=== PATIENT | female | born 1940 | race Caucasian/White ===

== ENCOUNTER 2016-08-02 12:28 | Inpatient (IN) ==
[2016-08-02] MEDS ORDERED: ONDANSETRON 4 MG/2 ML VIAL IV ONE (12:46)
[2016-08-02] MEDS ORDERED: LACTATED RINGERS 1,000 ML IV ONE (12:52)
--- NOTE | 2016-08-02 13:24 | Emergency Department Note ---
Nausea/Vomiting/Diarrhea HPI - General Chief complaint: Nausea/Vomiting/Diarrhea Stated complaint: brown emesis, dehydration Time Seen by Provider: 08/02/16 13:20 Source: patient Mode of arrival: ambulatory Limitations: no limitations - History of Present Illness HPI Narrative: Patient here with persistent nausea that she has had since Thursday. She has spells of hiccups, associated also with spells of vomiting, she's been trying to stay hydrated and was seen here on , at that point, did have a creatinine of 2.2, slight elevated BOM and was sent home with Zofran. Edwards. She is brought in by her daughters secondary to concerns of dehydration, she's not eating very well, did urinate this morning, no history of urinary tract infections. No fevers, denies abdominal pain. Occasionally, she's had some vague discomfort in the lower part of the abdomen. Previous abdominal surgeries include hysterectomy. She is not currently on any medications except low-dose aspirin and vitamins. Denies any chills. Denies any trauma, denies any previous symptoms like this before, no other previous abdominal surgeries. MD complaint: nausea, vomiting - Related Data Home Medications Medication Instructions Recorded Confirmed aspirin 81 mg tablet,delayed 81 mg PO QDAY 11/15/15 08/02/16 release multivitamin tablet 1 tab-cap PO QDAY 11/15/15 08/02/16 Previous Rx's Medication Instructions Recorded Ondansetron HCl [Zofran ODT] 4 mg SL Q4-6HP PRN #14 tablet 07/31/16 Allergies Allergy/AdvReac Type Severity Reaction Status Date / Time clopidogrel [From Plavix] Allergy Severe Right arm Verified 12/17/15 08:03 bleed rofecoxib [From Vioxx] Allergy Intermediate GI Upset Verified 12/17/15 08:03 morphine Allergy Mild Unknown Verified 12/17/15 08:03 Review of Systems All systems ED: reviewed and negative except as stated. Past Medical History - Past Medical History Source: nursing notes reviewed Medical history: Reports: other (Hysterectomy, hyperlipidemia, cerebral atrophy , urinary artery disease) Surgical history ED: Reports: hysterectomy - Social History smoking status: Never smoker Alcohol use: Reports: Rarely Drug use: Reports: none Physical Exam - General Limitations: no limitations General appearance: alert, in no apparent distress - Head Head exam: atraumatic, normocephalic - Eye Eye exam: Present: normal appearance, PERRL, EOMI. Absent: scleral icterus - ENT ENT exam: normal exam, normal oropharynx, mucous membranes moist, TM's normal bilaterally - Neck Neck exam: Present: normal inspection, full ROM, trachea midline. Absent: tenderness - Chest Chest inspection: Present: normal inspection, symmetric chest wall rise - Respiratory Respiratory exam: Present: normal lung sounds bilaterally. Absent: respiratory distress, wheezes - Cardiovascular Cardiovascular exam: Present: regular rate, normal rhythm, normal heart sounds - Abdominal Exam Abdominal exam: Present: soft, diminished bowel sounds. Absent: distention, tenderness, guarding - Rectal Exam Rectal exam: Present: normal inspection, normal rectal tone, heme (-) stool. Absent: mass - Extremities Exam Extremities exam: Present: normal inspection, full ROM. Absent: tenderness, pedal edema - Back Exam Back exam: Present: normal inspection, full ROM. Absent: tenderness, CVA tenderness (R), CVA tenderness (L), muscle spasm - Neurological Exam Neurological exam: Present: alert, oriented X3, CN II-XII intact. Absent: motor sensory deficit - Psychiatric Psychiatric exam: Present: normal affect, normal mood - Skin Skin exam: Present: warm, dry, intact. Absent: rash, cyanosis Course - Reevaluation(s) Reevaluation #1: CT scan of the abdomen and pelvis showing high-grade obstruction. Down in the pelvis, no obvious tumors, no obvious hydronephrosis. Consult with general surgery, as well as consult with internal medicine, they will take over and manage care from here. She was hydrated in the department, given Zofran and felt a little bit better, never required any pain medications.inal diagnosis is bowel obstruction along with renal failure, acute Vital Signs Temperature 95.6 F L 08/02/16 12:31 Pulse Rate 102 H 08/02/16 12:31 Respiratory Rate 16 08/02/16 12:31 Blood Pressure 96/31 08/02/16 12:31 Pulse Oximetry (%) 93 08/02/16 12:31 Temperature 97.0 F L 08/02/16 12:45 Pulse Rate 94 H 08/02/16 14:42 Respiratory Rate 22 08/02/16 14:42 Blood Pressure 112/74 08/02/16 14:42 Pulse Oximetry (%) 92 08/02/16 14:42 Nausea/Vomiting/Diarrhea - [facility] Narrative Medical decision making narrative: Laboratory studies reviewed, her creatinine went to 5.5 from 2.2, just 2 days ago. Abdominal plain films showing air-fluid levels, CT scan of the abdomen pending. Plan his hospital admission for acute renal failure, bowel obstruction , CT scan of the abdomen pending. - Lab Data Lab results reviewed: Yes I reviewed the patient's lab results. Result diagrams: 08/02/16 12:59 08/02/16 12:59 Lab Results 08/02/16 08/02/16 08/02/16 Range/Units 12:59 12:59 12:59 WBC 6.7 (4.5-11.0) K/mcL RBC 5.35 H (4.00-5.20) M/mcL Hgb 16.0 H (12.0-15.0) g/dL Hct 48.9 H (36.0-48.0) % POC Hct 50.0 H (36.0-48.0) % MCV 91.4 (80.0-100.0) fL MCH 29.9 (26.0-34.0) pg MCHC 32.7 (31.0-36.0) g/dL RDW 13.3 (11.5-14.5) % Plt Count 355 (140-440) K/mcL MPV 9.3 (7.4-10.4) fL Gran % 56.8 (38.0-78.0) % Lymph % (Auto) 25.9 (15.5-49.0) % [place] % (Auto) 16.9 H (1.0-9.0) % Eos % (Auto) 0.2 (0.0-7.0) % Baso % (Auto) 0.2 (0.0-2.0) % Gran # 3.8 (1.8-8.0) K/mcL Lymph # 1.7 (1.5-4.8) K/mcL [place] # 1.1 H (0.1-0.9) K/mcL Eos # 0 (0.0-0.7) K/mcL Baso # 0 (0.0-0.3) K/mcL POC Sodium 130 L (133-145) mmol/L Sodium 132 L (133-145) mmol/L POC Potassium 3.9 (3.3-5.1) mmol/L Potassium 4.1 (3.3-5.1) mmol/L POC Chloride 85 L (96-108) mmol/L Chloride 78 L (96-108) mmol/L Carbon Dioxide 24 (22-30) mmol/L POC Total CO2 29 (22-30) mmol/L Anion Gap 30.0 H (8-16) POC BUN 103 H* (8-23) mg/dl BUN 104 H* (8-23) mg/dl Creatinine 5.5 H* (0.6-1.1) mg/dl POC Creatinine 6.1 H* (0.6-1.1) mg/dl GFR Calculation 7 Glucose 166 H (70-105) mg/dL POC Glucose 169 H (70-105) mg/dL Calcium 8.9 (8.6-10.4) mg/dl POC WB Ioniz Calcium 0.84 L (1.16-1.32) mmol/L Total Bilirubin 0.4 (0.0-1.0) mg/dL AST 17 (0-37) U/l ALT 16 (0-40) U/l Alkaline Phosphatase 64 (39-117) U/L C-Reactive Protein (0.0-0.8) mg/dl Total Protein 8.0 (5.9-8.4) gm/dL Albumin 4.4 (3.2-5.2) gm/dL Globulin 3.6 (2.2-3.7) gm/dL Albumin/Globulin Ratio 1.2 (1.0-2.3) Urine Color Urine Appearance Urine pH (5.0-9.0) Ur Specific [place] (1.000-1.035) Urine Protein (NEG) mg/dL Urine Glucose (UA) (NEG) mg/dL Urine Ketones (NEG) mg/dL Urine Occult Blood (<0.03) mg/dL Urine Nitrate (NEG) Urine Bilirubin (NEG) mg/dL Urine Ictotest (NEG) Urine Urobilinogen (NEG) mg/dL Ur Leukocyte Esterase (NEG) /uL Urine RBC (0-1) /hpf Urine WBC (0-4) /hpf Ur Squamous Epith Cells (0-4) /hpf Ur Transition Epith Cell (0-2) /hpf Urine Bacteria (0) /hpf Hyaline Casts (0-2) /lpf Urine Mucus (0) /hpf Ur Culture Indicated? 08/02/16 08/02/16 Range/Units 12:59 13:44 WBC (4.5-11.0) K/mcL RBC (4.00-5.20) M/mcL Hgb (12.0-15.0) g/dL Hct (36.0-48.0) % POC Hct (36.0-48.0) % MCV (80.0-100.0) fL MCH (26.0-34.0) pg MCHC (31.0-36.0) g/dL RDW (11.5-14.5) % Plt Count (140-440) K/mcL MPV (7.4-10.4) fL Gran % (38.0-78.0) % Lymph % (Auto) (15.5-49.0) % [place] % (Auto) (1.0-9.0) % Eos % (Auto) (0.0-7.0) % Baso % (Auto) (0.0-2.0) % Gran # (1.8-8.0) K/mcL Lymph # (1.5-4.8) K/mcL [place] # (0.1-0.9) K/mcL Eos # (0.0-0.7) K/mcL Baso # (0.0-0.3) K/mcL POC Sodium (133-145) mmol/L Sodium (133-145) mmol/L POC Potassium (3.3-5.1) mmol/L Potassium (3.3-5.1) mmol/L POC Chloride (96-108) mmol/L Chloride (96-108) mmol/L Carbon Dioxide (22-30) mmol/L POC Total CO2 (22-30) mmol/L Anion Gap (8-16) POC BUN (8-23) mg/dl BUN (8-23) mg/dl Creatinine (0.6-1.1) mg/dl POC Creatinine (0.6-1.1) mg/dl GFR Calculation Glucose (70-105) mg/dL POC Glucose (70-105) mg/dL Calcium (8.6-10.4) mg/dl POC WB Ioniz Calcium (1.16-1.32) mmol/L Total Bilirubin (0.0-1.0) mg/dL AST (0-37) U/l ALT (0-40) U/l Alkaline Phosphatase (39-117) U/L C-Reactive Protein 4.9 H (0.0-0.8) mg/dl Total Protein (5.9-8.4) gm/dL Albumin (3.2-5.2) gm/dL Globulin (2.2-3.7) gm/dL Albumin/Globulin Ratio (1.0-2.3) Urine Color Yellow Urine Appearance Cloudy Urine pH 5.0 (5.0-9.0) Ur Specific [place] 1.018 (1.000-1.035) Urine Protein 30 A (NEG) mg/dL Urine Glucose (UA) Negative (NEG) mg/dL Urine Ketones 5/tr A (NEG) mg/dL Urine Occult Blood Neg (<0.03) mg/dL Urine Nitrate Neg (NEG) Urine Bilirubin Neg (NEG) mg/dL Urine Ictotest Neg (NEG) Urine Urobilinogen Neg (NEG) mg/dL Ur Leukocyte Esterase 25 A (NEG) /uL Urine RBC 6 H (0-1) /hpf Urine WBC 29 H (0-4) /hpf Ur Squamous Epith Cells 28 H (0-4) /hpf Ur Transition Epith Cell 1 (0-2) /hpf Urine Bacteria 0 (0) /hpf Hyaline Casts 56 H (0-2) /lpf Urine Mucus Few (0) /hpf Ur Culture Indicated? No - Radiology Data Radiology results reviewed: Yes I reviewed the patient's radiology results. Disposition Clinical Impression: Dehydration, Hx of hysterectomy, Bowel obstruction Disposition: Xfer As Inpt ([facility]) Condition: Fair Referrals: Yobani Sanchez MD [Primary Care Provider] -
[2016-08-02 13:41] LABS: Basophils # (Auto) 0 K/mcL (0.0-0.3); Basophils % (Auto) 0.2 % (0.0-2.0); Eosinophils # (Auto) 0 K/mcL (0.0-0.7); Eosinophils % (Auto) 0.2 % (0.0-7.0); Granulocytes % (Auto) 56.8 % (38.0-78.0); Lymphocytes # (Auto) 1.7 K/mcL (1.5-4.8); Lymphocytes % (Auto) 25.9 % (15.5-49.0); Mean Cell Volume 91.4 fL (80.0-100.0); Mean Corpuscular HGB Conc 32.7 g/dL (31.0-36.0); Mean Corpuscular Hemoglobin 29.9 pg (26.0-34.0); Monocytes # (Auto) 1.1 K/mcL (0.1-0.9); Monocytes % (Auto) 16.9 % (1.0-9.0); Platelet Count 355 K/mcL (140-440); RBC 5.35 M/mcL (4.00-5.20); Red Cell Distribution Width 13.3 % (11.5-14.5)
--- NOTE | 2016-08-02 13:57 | XRay Report ---
CLINICAL INFORMATION: Vomiting for six days. Abdominal pain TECHNIQUE: Supine and upright abdomen COMPARISON: None. FINDINGS: Dilated gas-filled small bowel in the midabdomen. There is some gas and fecal material within the colon. There are air-fluid levels. Appearance is consistent with mechanical small bowel obstruction. May be partial. No pneumoperitoneum. No biliary or portal venous gas. No pneumatosis. No pathologic calcifications. No surgical sutures or clips identified. IMPRESSION: Findings consistent with mechanical small bowel obstruction. Partial mechanical small bowel structures and is possible. Interpreted and Authenticated by: Liborio Alvarado 08/02/16
[2016-08-02 14:05] LABS: ALT/SGPT 16 U/l (0-40); Albumin 4.4 gm/dL (3.2-5.2); Albumin/Globulin Ratio 1.2 (1.0-2.3); Alkaline Phosphatase 64 U/L (39-117); Blood Urea Nitrogen 104 mg/dl (8-23)
[2016-08-02] MEDS ORDERED: PANTOPRAZOLE 40 MG VIAL IV ONE (14:11)
[2016-08-02] MEDS ORDERED: 0.9 % SODIUM CHLORIDE 1,000 ML IV SCH (14:15)
[2016-08-02 14:22] LABS: Appearance,Urine CLOUDY; Bilirubin,Urine NEG (NEG); Color,Urine YELLOW; Glucose,Urine (UA) NEGATIVE (NEG); Ictotest,Urine NEG (NEG); Leukocyte Esterase,Urine 25 /uL (NEG); Nitrate,Urine NEG (NEG); Protein,Urine 30 mg/dL (NEG); Specific Gravity,Urine 1.018 (1.000-1.035); Urine Blood NEG mg/dL (<0.03); Urobilinogen,Urine NEG (NEG)
[2016-08-02 14:23] LABS: Bacteria,Urine 0 /hpf (0); Mucus,Urine FEW /hpf (0); Urine Hyaline Cast 56 /lpf (0-2); Urine RBC 6 /hpf (0-1); Urine Squamous Epithelial Cell 28 /hpf (0-4); Urine Transitional Epi Cells 1 /hpf (0-2); Urine WBC 29 /hpf (0-4)
--- NOTE | 2016-08-02 14:59 | Cat Scan Report ---
CLINICAL INFORMATION: Abdominal pain. Mechanical small bowel obstruction demonstrated on previous plain film examination COMPARISON: Plain radiographs dated 08/02/2016 TECHNIQUE: Axial images were obtained through the abdomen and pelvis. Sagittally and coronally reformatted images. Intravenous contrast material was not administered as this patient is in renal failure FINDINGS: Mechanical small bowel obstruction. There is small bowel dilatation with maximum cross-sectional diameter of approximately 3.5 cm. Small bowel is fluid filled. Transition point appears to be in the midline pelvis. Patient has undergone previous hysterectomy and this is probably an obstruction secondary to postoperative adhesions. No evidence for loop obstruction. No inguinal or abdominal wall hernia. No small bowel thickening. No significant free fluid. No pneumoperitoneum. No biliary or portal venous gas. Lung bases are negative. There is a hiatal hernia. The stomach is distended and fluid-filled. Negative liver. No focal intrahepatic abnormalities identified on noncontrast enhanced examination. Gallbladder is present. No calcific gallstones. Spleen is negative. No splenomegaly. Negative pancreas. Negative adrenal glands. Kidneys are negative. There is a probable left renal cyst. No hydronephrosis. No renal calculi. No evidence for appendicitis or diverticulitis. No colonic mass. There are multiple calcifications in the pelvis which are probably phleboliths. There is a single tiny gas bubble in a collapsed urinary bladder. Uterus is been removed. No adnexal mass. Degenerative disc disease at L5-S1. IMPRESSION: 1. Mechanical small bowel obstruction. No evidence for closed loop or ischemic bowel. 2. Transition point is probably in the midline pelvis 3. Renal failure. No hydronephrosis. Interpreted and Authenticated by: Liborio Alvarado 08/02/16
[2016-08-02] MEDS ORDERED: LIDOCAINE JEL 2% 1 TUBE 30GM TOPICAL ONE ×2 (15:34)
--- NOTE | 2016-08-02 15:44 | Internal Med History&Physical ---
Medical - H&P: HPI Patient information: Note initiated : 08/02/16 at 3:39 pm Service Date, if different from initiated Date: [] Patient: Andi Diallo a 75 y/o F admitted on for brown emesis, dehydration. Chief Complaint: [] History of present illness: Ms. Diallo is a 75 year old female with h/o hystrectomy in the past, presents to the ER with complaints of nausea and vomiting going on since thursday (5 days) The patient symptoms started at night. She had 3-4 bouts of vomiting then and nausea, her symptoms somewhat got better, but she was not feeling well, she therefore presented to the ER on , Where she was evaluated, her creat was 2.2 then, she was given zofran and advised to follow up with PCP. The pt condition worsened again, with repeated bouts of vomiting, and nausea, no blood in vomitis, no aggravating or relieving factor, she notes to have poor appetitie. She presented to the ER again today. CXR abdomen shows that she has low level pelvic obstruction. She has REnal failure and severe dehydration. Medicine was asked to admit the patient , Surgery consulted from the ER. The patient is making very little urine, made a few ml in the ER for analysis and a little before she came in, She has not had any BM or Gas that she can remember, Last BM was 1 week ago. Given severe dehydration and Acute kidney injury with Creat 5.5, and BUN 104, the patient will be admitted to telemetery for further management. - Constitutional Constitutional: Present: fatigue, malaise, weakness. Absent: fever(s), headache (s) - EENT Eyes: Absent: blurry vision, change in vision Ears: Absent: ear discharge, tinnitus Nose, mouth and throat: Absent: abnormal hearing, dental pain, disequilibrium - Cardiovascular Cardiovascular: Absent: chest pain, chest pain at rest, leg ulcers, orthopnea, palpatations, pedal edema - Respiratory Respiratory: Absent: dyspnea, dyspnea on exertion, chest congestion - Gastrointestinal Gastrointestinal: Present: change in bowel habits, constipation, nausea, vomiting. Absent: abdominal pain, diarrhea - Genitourinary Genitourinary: Absent: hematuria, urinary frequency (decreased urination. ) - Musculoskeletal Musculoskeletal: Absent: arthralgias - Integumentary Integumentary: Absent: skin pain, skin ulcer, wounds, jaundice - Neurological Neurological: Absent: disequilibrium, focal weakness, syncope, vertigo - Psychiatric Psychiatric: Absent: anxiety, confusion, depression - Endocrine Endocrine: Absent: polydipsia, polyphagia, polyuria - Hematologic/Lymphatic Hematologic/Lymphatic: Absent: easy bleeding, easy bruising - Allergic/Immunologic Allergic/Immunologic: Absent: uticaria, wheezing, lip swelling Medical - H&P: PMH Medical history: Medical History Dehydration (Acute) Bowel obstruction (Acute) Pain in limb (Chronic) Hyperlipidemia (Chronic) Cerebral atrophy (Chronic) CAD (coronary artery disease) (Chronic) Surgical history: Past Surgical History Hx of hysterectomy (Chronic) Hx of cardiac cath (Chronic) Family history: reviewed and not pertinent Medical - H&P: Meds Allergies Allergy/AdvReac Type Severity Reaction Status Date / Time clopidogrel [From Plavix] Allergy Severe Right arm Verified 12/17/15 08:03 bleed rofecoxib [From Vioxx] Allergy Intermediate GI Upset Verified 12/17/15 08:03 morphine Allergy Mild Unknown Verified 12/17/15 08:03 Medical - H&P: Exam - Constitutional Vitals: Temp Pulse Resp BP Pulse Ox 97.0 F L 89 18 120/72 94 08/02/16 12:45 08/02/16 15:00 08/02/16 15:00 08/02/16 15:00 08/02/16 15:00 General appearance: cooperative, no acute distress - Head Head exam: Present: atraumatic, normal inspection, normocephalic - Eye Eye exam: Present: PERRL. Absent: periorbital swelling, periorbital tenderness , scleral icterus - ENT ENT exam: Present: mucous membranes dry - Neck Neck exam: Present: normal inspection - Respiratory Respiratory exam: Present: normal respiratory exam. Absent: accessory muscle use, respiratory distress, rhonchi, wheezes - Cardiovascular Cardiovascular exam: Present: normal rate and rhythm, +S1, +S2 - GI/Abdominal GI/Abdominal exam: Present: soft, diminished bowel sounds. Absent: guarding, rigid - Extremities Exam Extremities exam: Present: Foot pink and warm, neurovascular intact. Absent: pedal edema - Back Exam Back exam: Present: normal inspection. Absent: CVA tenderness (L), CVA tenderness (R), paraspinal tenderness - Neurological Exam Neurological exam: Present: alert, CN II-XII intact, oriented X3. Absent: motor sensory deficit - Psychiatric Psychiatric exam: Absent: agitated, anxious, depressed - Skin Skin exam: Present: dry, warm. Absent: rash, urticaria Medical - H&P: Reslt - Labs CBC & Chem 7: 08/02/16 12:59 08/02/16 12:59 Labs: Short CBC 08/02/16 Range/Units 12:59 WBC 6.7 (4.5-11.0) K/mcL Hgb 16.0 H (12.0-15.0) g/dL Hct 48.9 H (36.0-48.0) % Plt Count 355 (140-440) K/mcL BMP 08/02/16 12:59 Sodium 132 L Potassium 4.1 Chloride 78 L Carbon Dioxide 24 BUN 104 H* Creatinine 5.5 H* Glucose 166 H Calcium 8.9 Liver Function 08/02/16 Range/Units 12:59 Total Bilirubin 0.4 (0.0-1.0) mg/dL AST 17 (0-37) U/l ALT 16 (0-40) U/l Alkaline Phosphatase 64 (39-117) U/L Albumin 4.4 (3.2-5.2) gm/dL Urine 08/02/16 Range/Units 13:44 Urine Color Yellow Urine Appearance Cloudy Urine pH 5.0 (5.0-9.0) Ur Specific [place] 1.018 (1.000-1.035) Urine Protein 30 A (NEG) mg/dL Urine Glucose (UA) Negative (NEG) mg/dL Medical - H&P: A/P (1) Acute kidney injury Current visit: Yes Status: Acute (2) Dehydration Current visit: Yes Status: Acute (3) Bowel obstruction Current visit: Yes Status: Acute (4) CAD (coronary artery disease) Problem details: Acute cardiac NE 11/18/09--Echo and Cardiac Cath ([place]) showing small vessel thrombus--Plavix, then d/c'd by Jamila Bustos secondary to right arm bleed Current visit: No Status: Chronic - Narrative A/P Narrative: Acute kidney injury- Likely pre renal, Creat normal last year, 2.2 this and now 5.5, GFR is 7, CT is neg for hydronephrosis, UA reviewed , contaminated sample, get urine sodium, urine creat, prot creat ratio, Place [place] to accurately document urine output. Nephrology evaluation given low gfr and likely need for surgery to relieve obstruction. SBO- Low grade, On CT stomach distended. Will place NG tube to low intermittent suction, Gen Surgery consulted, will need resuscitation and optimization of fluids status before any surgical intervention is planned. Pre op eval- Will need EKG, h/o NE in the past, and now renal failure, no h/o chf, or stroke. RCRI is 2, no tia, but Transient global amnesia is present, if renal function does not improve she will be high risk for periop mortality, if it does then she will be moderate risk. The patient is still smoking, did not smoke since 1 week. She is otherwise fairly active with MET >4. No chest pain recently at rest or on activity. Dehydration- IV fluids for now, Hyponatremia- due to nausea, vomiting and poor intake. DVT hep sq Diet NPO for now. Social History - Social History household members: alone housing: house lives independently: Yes marital status: occupational status: retired occupation: teacher - Tobacco smoking status: Never smoker - Tobacco Type tobacco type: cigarettes - Alcohol alcohol intake frequency: holiday/special occasion only - Substance use substance use type: does not use
--- NOTE | 2016-08-02 15:58 | Nephrology Consult Note ---
History of Present Illness - Reason for Consult Patient information: Note initiated : 08/02/16 at 3:57 pm Service Date, if different from initiated Date: [] Patient: Andi Diallo a 75 y/o F admitted on for brown emesis, dehydration. Chief Complaint: [] acute renal failure, hyponatremia Requesting physician: Agnes Glass - Chief Complaint nausea/vomiting - brown emesis/poor po intake - History of Present Illness Pt is a 75 yo female with hx of hysterectomy, no other abdominal surgeries was in her usual state of health, working in her yard until friday 07/28 when she started developing episodes of nausea/vomiting that continued until so she presented to the ED, was given IVFluids, meds for nausea/vomiting, d/ c to home with a prescription for zofran and instructions to f/u with PCP. Her Cr at that time was 2.2. She has a normal bowel movement on thursday and has been obstipated since then. She was brought to ER today since she did not feel very well, had been able to keep down any liquid. Her 2 daughters were with her in ER. Pt had brown vomitus, but no complaints of abdominal pain. Her sCr was up to 5.5 with a BUN of 104 (2.2/42 on 07/31). She was making very little urine. Her serum Na was low at 132. Pt was seen by surgeon, Dr Hernandez and patient admitted to hospitalist service. Patient received a liter of LR and NS at 250 cc/hr since then. An NGT was placed and pt was draining out large amounts of brown liquid. A CT/Abd pelvis was done which showed the obstruction to be mechanical at the level of the pelvis likely related to her previous hysterectomy. She is admitted to Tele for monitoring. Pt was in good spirits and didnt have any complaints when seen. Review of Systems ROS unobtainable: other (as noted in H&P) All systems PM: reviewed and no additional remarkable complaints except as stated Past History Past medical history: Dehydration CHADWICK Pain in limb (Chronic) Hyperlipidemia (Chronic) Cerebral atrophy (Chronic) CAD (coronary artery disease) (Chronic) Past surgical history: Hx of hysterectomy (Chronic) Hx of cardiac cath (Chronic) Past family history: not contributory to current admission Past social history: , 3 yrs ago Independent with ADLs had 4 children grandson lives at her place Thu - , 2 daughters - the remaining days hx of cigarette smoking, no hx of alcohol or illicit drug use Medications and Allergies Home Medications Medication Instructions Recorded Confirmed Type aspirin 81 mg tablet,delayed 81 mg PO QDAY 11/15/15 08/02/16 History release multivitamin tablet 1 tab-cap PO QDAY 11/15/15 08/02/16 History Ondansetron HCl [Zofran ODT] 4 mg SL Q4-6HP PRN #14 tablet 07/31/16 08/02/16 Rx Allergies Allergy/AdvReac Type Severity Reaction Status Date / Time clopidogrel [From Plavix] Allergy Severe Right arm Verified 12/17/15 08:03 bleed rofecoxib [From Vioxx] Allergy Intermediate GI Upset Verified 12/17/15 08:03 morphine Allergy Mild Unknown Verified 12/17/15 08:03 Exam - Vital Signs Vital signs: Temp Pulse Resp BP Pulse Ox 97.0 F L 91 H 22 111/74 93 08/02/16 12:45 08/02/16 15:30 08/02/16 15:30 08/02/16 15:30 08/02/16 15:30 - General Appearance General appearance: well-developed (in no distress, very pleasant), appears started age EENT: mucous membranes dry (NGT in place draining brown fluid) Neck: supple Respiratory: clear (no wheezing/ronchi/crackles) Cardiology: regular rate, regular rhythm, normal S1, normal S2 Gastrointestinal: hypoactive bowel sounds (few), no tenderness, no guarding, no masses, distended (mildly) Integumentary: no rash, warm and dry Neurologic: no focal deficit, no asterixis, alert and oriented x3 Musculoskeletal: no erythema Psychiatric: mood/affect appropriate Results - Lab Results 08/02/16 12:59 08/02/16 12:59 Most recent lab results Calcium 8.9 mg/dl (8.6-10.4) 08/02/16 12:59 Assessment and Plan (1) Acute kidney injury Appears to be prerenal given poor po intake, vomiting. Pt is oliguric She will be aggressively hydrated monitor u/o ; howell cath placed daily weights monitor for respiratory issues with hydration avoid all nephrotoxins dose meds for eFGR < 5 Cr is at 5.5 and BUN 104 monitor mental status monitor renal function Pt will be continued on IVFs and monitored for u/o and improvement in renal function Labs ordered for 7 pm today Surgery is not acutely needed today and patients renal function may start improving post hydration. Currently, neither electrolytes nor volume is not an issue; but HD will need to be considered if situation does not improve Pts daughters were updated Status: Acute Priority: High (2) Dehydration Secondary to vomiting and poor po intake Pt is hemoconcentrated monitor labs Status: Acute (3) Hyponatremia secondary to poor intake and emesis and nausea Pt being hydrated with normal saline monitor levels Status: Acute (4) Bowel obstruction Being seen by Dr Hernandez with plans for eventual surgery for now, needs optimization of renal function and volume status prior to surgery Status: Acute Priority: High Qualifiers: Intestinal obstruction type: obstruction due to adhesions Qualified Code(s) : K56.5 - Intestinal adhesions [bands] with obstruction (postprocedural) ( postinfection)
--- NOTE | 2016-08-02 16:00 | General Surgery Consult Note ---
History of Present Illness Patient information: Note initiated : 08/02/16 at 3:59 pm Service Date, if different from initiated Date: [] Patient: Andi Diallo a 75 y/o F admitted on for brown emesis, dehydration. Chief Complaint: [nausea and vomiting] Consult date: 08/02/16 Reason for consult: other (bowel obstruction) Requesting physician: Agnes Glass History of present illness: 75 yo WF was in ER ~ 2 days ago - started having vomiting 5 days ago. Some days once - others 2-4 X. Started having more hiccup then followed by vomiting. Really denies any abdominal pain. Has had no fevers chills. No BM since Thursday and no flatus which is unusual for her. No prior colonoscopy. Had hysterectomy for prolapse at about age 28 - only prior abdominal surgery. No prior occurrences like this. In ER previously Cr was 2.2 - now 5.5 with BUN>100. Has had little UO last 2 days - noted today it was dark. No UTI symptoms. No prior kidney problems. Review of Systems All systems PM: reviewed and no additional remarkable complaints except as stated (morning cough due to smoking - unchanged.) Past History Past medical history: No [place] CVA HTN DM liver or kidney disease Past surgical history: Hysterectomy - and knee arthroscopy Past family history: No CA, anesthesia, cardiac, or bleeding history Past social history: 1/2 PPD for > 40 years No Etoh of other drugs of > 50 years 3 years ago. Has 4 children - 2 daughters with her tonight. Grandson lives with her. Medications and Allergies Home Medications Medication Instructions Recorded Confirmed Type aspirin 81 mg tablet,delayed 81 mg PO QDAY 11/15/15 08/02/16 History release multivitamin tablet 1 tab-cap PO QDAY 11/15/15 08/02/16 History Ondansetron HCl [Zofran ODT] 4 mg SL Q4-6HP PRN #14 tablet 07/31/16 08/02/16 Rx Allergies Allergy/AdvReac Type Severity Reaction Status Date / Time clopidogrel [From Plavix] Allergy Severe Right arm Verified 12/17/15 08:03 bleed rofecoxib [From Vioxx] Allergy Intermediate GI Upset Verified 12/17/15 08:03 morphine Allergy Mild Unknown Verified 12/17/15 08:03 Exam Temp Pulse Resp BP Pulse Ox 97.0 F L 91 H 22 111/74 93 08/02/16 12:45 08/02/16 15:30 08/02/16 15:30 08/02/16 15:30 08/02/16 15:30 - General physical appearance well developed, well nourished, no distress, no pain - Eyes PERRL, normal ocular movement - ENT normal pinna, normal nares, no hearing loss, no congestion, other (mucosa dry) - Head Head exam IM: Present: atraumatic, normal inspection, normocephalic - Neck no masses, no bruits, trachea midline, no lymphadectomy, no venous distension - Cardiovascular Cardiovascular exam IM: Present: normal rate and rhythm. Absent: bradycardia, clicks, diastolic murmur, gallop, irregular rhythm, JVD, RRR, rubs, +S1, +S2, + S3, +S4, systolic murmur, tachycardia Peripheral pulses: 3+/4+: carotid (L), carotid (R), radial (L), radial (R) - Respiratory normal expansion, normal respiratory effort, clear to auscultation - Abdomen Abdomen: Present: soft, non tender (no guarding, no peritonitis, no shake/ percussion/rebound tenderness), bowel sounds (scant), distended (mildly so - very tympanitic) - Musculoskeletal Present: other (- Annabel's, no edema) - Psychiatric Present: oriented to time, oriented to person, oriented to place, speech is normal, memory intact Results - Labs 08/02/16 12:59 08/02/16 12:59 Abnormal lab results 08/02/16 08/02/16 08/02/16 Range/Units 12:59 12:59 12:59 RBC 5.35 H (4.00-5.20) M/mcL Hgb 16.0 H (12.0-15.0) g/dL Hct 48.9 H (36.0-48.0) % POC Hct 50.0 H (36.0-48.0) % [place] % (Auto) 16.9 H (1.0-9.0) % [place] # 1.1 H (0.1-0.9) K/mcL POC Sodium 130 L (133-145) mmol/L Sodium 132 L (133-145) mmol/L POC Chloride 85 L (96-108) mmol/L Chloride 78 L (96-108) mmol/L Anion Gap 30.0 H (8-16) POC BUN 103 H* (8-23) mg/dl BUN 104 H* (8-23) mg/dl Creatinine 5.5 H* (0.6-1.1) mg/dl POC Creatinine 6.1 H* (0.6-1.1) mg/dl Glucose 166 H (70-105) mg/dL POC Glucose 169 H (70-105) mg/dL POC WB Ioniz Calcium 0.84 L (1.16-1.32) mmol/L C-Reactive Protein (0.0-0.8) mg/dl Urine Protein (NEG) mg/dL Urine Ketones (NEG) mg/dL Ur Leukocyte Esterase (NEG) /uL Urine RBC (0-1) /hpf Urine WBC (0-4) /hpf Ur Squamous Epith Cells (0-4) /hpf Hyaline Casts (0-2) /lpf U [place] Prot/Creat Ratio mg:mg 08/02/08/02/16 08/02/16 Range/Units 12:59 13:44 13:44 RBC (4.00-5.20) M/mcL Hgb (12.0-15.0) g/dL Hct (36.0-48.0) % POC Hct (36.0-48.0) % [place] % (Auto) (1.0-9.0) % [place] # (0.1-0.9) K/mcL POC Sodium (133-145) mmol/L Sodium (133-145) mmol/L POC Chloride (96-108) mmol/L Chloride (96-108) mmol/L Anion Gap (8-16) POC BUN (8-23) mg/dl BUN (8-23) mg/dl Creatinine (0.6-1.1) mg/dl POC Creatinine (0.6-1.1) mg/dl Glucose (70-105) mg/dL POC Glucose (70-105) mg/dL POC WB Ioniz Calcium (1.16-1.32) mmol/L C-Reactive Protein 4.9 H (0.0-0.8) mg/dl Urine Protein 30 A (NEG) mg/dL Urine Ketones 5/tr A (NEG) mg/dL Ur Leukocyte Esterase 25 A (NEG) /uL Urine RBC 6 H (0-1) /hpf Urine WBC 29 H (0-4) /hpf Ur Squamous Epith Cells 28 H (0-4) /hpf Hyaline Casts 56 H (0-2) /lpf U [place] Prot/Creat Ratio 0.67 H mg:mg Diabetes panel 08/02/16 Range/Units 12:59 Sodium 132 L (133-145) mmol/L Potassium 4.1 (3.3-5.1) mmol/L Chloride 78 L (96-108) mmol/L Carbon Dioxide 24 (22-30) mmol/L BUN 104 H* (8-23) mg/dl Creatinine 5.5 H* (0.6-1.1) mg/dl Glucose 166 H (70-105) mg/dL Calcium 8.9 (8.6-10.4) mg/dl AST 17 (0-37) U/l ALT 16 (0-40) U/l Alkaline Phosphatase 64 (39-117) U/L Total Protein 8.0 (5.9-8.4) gm/dL Albumin 4.4 (3.2-5.2) gm/dL Calcium panel 08/02/16 Range/Units 12:59 Calcium 8.9 (8.6-10.4) mg/dl Albumin 4.4 (3.2-5.2) gm/dL Pituitary panel 08/02/16 Range/Units 12:59 Sodium 132 L (133-145) mmol/L Potassium 4.1 (3.3-5.1) mmol/L Chloride 78 L (96-108) mmol/L Carbon Dioxide 24 (22-30) mmol/L BUN 104 H* (8-23) mg/dl Creatinine 5.5 H* (0.6-1.1) mg/dl Glucose 166 H (70-105) mg/dL Calcium 8.9 (8.6-10.4) mg/dl Adrenal panel 08/02/16 Range/Units 12:59 Sodium 132 L (133-145) mmol/L Potassium 4.1 (3.3-5.1) mmol/L Chloride 78 L (96-108) mmol/L Carbon Dioxide 24 (22-30) mmol/L BUN 104 H* (8-23) mg/dl Creatinine 5.5 H* (0.6-1.1) mg/dl Glucose 166 H (70-105) mg/dL Calcium 8.9 (8.6-10.4) mg/dl Total Bilirubin 0.4 (0.0-1.0) mg/dL AST 17 (0-37) U/l ALT 16 (0-40) U/l Alkaline Phosphatase 64 (39-117) U/L Total Protein 8.0 (5.9-8.4) gm/dL Albumin 4.4 (3.2-5.2) gm/dL All other labs normal. - Imaging CT scan - abdomen: report reviewed, image reviewed (shows very distended stomach & small bowel - latter down into pelvis with collapsed small bowel coming out of pelvis. No inflammatory changes. No IV contrast due to ARF) Assessment and Plan (1) Acute kidney injury Status: Acute Priority: High (2) Bowel obstruction She needs fluid resuscitation prior to any consideration of surgery especially with obvious ARF NGT to LIS Will give some GG contrast at 2100 & clamp NGT until [address] in AM If in morning BUN & Cr are better, & Nephrology & Hospitalist concur AND remains with radiology & clinical evidence of complete SBO - will need laparoscopy and likely laparotomy due to distention of SB and challenge of managing it just with scope. No evidence of peritonitis, leukocytosis or tenderness consistent with impending bowel necrosis so seems safe to proceed with this - WITH the understanding that there is nothing objective that is 100% predictive that this course is safe. I think the significantly increased risks of urgent surgery now with her acute renal failure far outweigh the risks of watching her SBO overnight and proceeding with the resuscitation. All this discussed in detail with the patient and 2/4 of her daughters who stated they understood and agree with this plan. Status: Acute Priority: High Comment: appears to be complete with no history of BM/flatus for 5 days and what is visible on CT Qualifiers: Intestinal obstruction type: obstruction due to adhesions Qualified Code(s) : K56.5 - Intestinal adhesions [bands] with obstruction (postprocedural) ( postinfection) (3) Dehydration Status: Acute (4) Hx of hysterectomy Status: Chronic Comment: (Dr. Rowley)--ovaries in, cervix out. Bimanual exam 09/2010. Mammogram 04/18/10
--- NOTE | 2016-08-02 16:44 | XRay Report ---
CLINICAL INFORMATION: Nasogastric tube placement. Small bowel obstruction TECHNIQUE: AP upright portable chest x-ray COMPARISON: None. FINDINGS: Esophagogastric tube with its tip in the stomach. Lungs are negative. No acute or focal pulmonary parenchymal infiltrate. No pulmonary parenchymal mass. Heart size and vascularity are normal. Katarzyna and mediastinum are negative. No pleural fluid. IMPRESSION: 1. Esophagogastric tube with its tip in the stomach 2. Otherwise negative AP chest x-ray Interpreted and Authenticated by: Liborio Alvarado 08/02/16
[2016-08-02] MEDS: 0.9 % SODIUM CHLORIDE 1,000 ML IV SCH ×4 (17:00→22:53)
[2016-08-02] MEDS ORDERED: ACETAMINOPHEN 325 MG TABLET PO PRN (17:23)
[2016-08-02] MEDS ORDERED: ONDANSETRON 4 MG/2 ML VIAL IV PRN (17:23)
[2016-08-02] MEDS ORDERED: NALOXONE HCL 0.4 MG/ML VIAL IV PRN (17:23)
[2016-08-02 20:37] LABS: ALT/SGPT 12 U/l (0-40); Albumin 3.1 gm/dL (3.2-5.2); Albumin/Globulin Ratio 1.1 (1.0-2.3); Alkaline Phosphatase 48 U/L (39-117); Blood Urea Nitrogen 105 mg/dl (8-23); Magnesium 2.2 mg/dL (1.6-2.5)
[2016-08-02] MEDS ORDERED: HEPARIN 5,000 UNIT/ML VIAL ONE (21:11)
[2016-08-02] MEDS: HEPARIN 5,000 UNIT/ML VIAL SQ SCH (21:19)
[2016-08-03] MEDS: 0.9 % SODIUM CHLORIDE 1,000 ML IV SCH ×3 (03:52→05:32)
[2016-08-03 05:57] LABS: Basophils # (Auto) 0 K/mcL (0.0-0.3); Basophils % (Auto) 0.3 % (0.0-2.0); Eosinophils # (Auto) 0.1 K/mcL (0.0-0.7); Eosinophils % (Auto) 1.7 % (0.0-7.0); Granulocytes % (Auto) 63.5 % (38.0-78.0); Lymphocytes # (Auto) 1.3 K/mcL (1.5-4.8); Lymphocytes % (Auto) 19.8 % (15.5-49.0); Mean Cell Volume 92.8 fL (80.0-100.0); Mean Corpuscular HGB Conc 33.6 g/dL (31.0-36.0); Mean Corpuscular Hemoglobin 31.1 pg (26.0-34.0); Monocytes % (Auto) 14.7 % (1.0-9.0); Platelet Count 237 K/mcL (140-440); RBC 3.87 M/mcL (4.00-5.20)
[2016-08-03 06:19] LABS: ALT/SGPT 10 U/l (0-40); Albumin 2.8 gm/dL (3.2-5.2); Albumin/Globulin Ratio 1.2 (1.0-2.3); Alkaline Phosphatase 45 U/L (39-117); Bilirubin,Direct < 0.2 mg/dL (0.0-0.3); Blood Urea Nitrogen 90 mg/dl (8-23); Gamma Glutamyl Transpeptidase 16 U/L (5-36); Magnesium 2.2 mg/dL (1.6-2.5); Phosphorous 5.2 mg/dL (2.7-4.5); Uric Acid 13.4 mg/dL (2.5-8.0)
[2016-08-03] MEDS: PANTOPRAZOLE 40 MG VIAL IV SCH (07:29)
[2016-08-03] MEDS ORDERED: LACTATED RINGERS 1,000 ML IV SCH ×2 (07:34→13:00)
[2016-08-03] MEDS ORDERED: CALCIUM GLUCONATE 4.65 MEQ/10 ML VIAL IV ONE ×5 (07:34→12:30)
--- NOTE | 2016-08-03 08:00 | Internal Med Progress Note ---
Medical - PN: Subj Patient information: Note initiated : 08/03/16 at 7:57 am Service Date, if different from initiated Date: [] Patient: Andi Diallo 75 y/o F admitted on 08/02/16 for brown emesis, dehydration. Chief Complaint: [] - Constitutional Vitals: Vital Signs Temp Pulse Resp BP Pulse Ox 98.5 F 96 H 16 107/56 96 08/03/16 04:00 08/02/16 16:45 08/03/16 04:00 08/03/16 04:00 08/03/16 04:00 Period Temp Pulse Resp BP Sys/Lewis Pulse Ox Last 24 Hr 98.5 F-98.8 F 16-16 107-127/56-90 94-96 Intake and Output 08/02/16 08/03/16 08/03/16 21:59 05:59 13:59 Intake Total 1950 / 3475 1999 917 / 917 Output Total 400 / 2200 1325 / 1325 Balance 1550 / 1275 675 / 675 917 / 917 Weight 126 lb 2 oz Intake & Output: Intake & Output 08/02/16 08/03/16 08/03/16 21:59 05:59 13:59 Intake Total 1950 / 3475 1999 917 / 917 Output Total 400 / 2200 1325 / 1325 Balance 1550 / 1275 675 / 675 917 / 917 Weight 126 lb 2 oz Intake: IV 1000 / 1000 1999 917 / 917 Sodium Chloride 0.9% 1, 1000 / 1000 1999 917 / 917 000 ml @ 250 mls/hr IV . Q4H [facility] Rx#:[id number] Other 950 / 950 Output: Gastric Drainage 150 / 1949 750 / 750 Left Nare NG/OG 150 / 1949 750 / 750 Urine Catheter Amount 250 / 250 575 / 575 Medical - PN: Obj Da - Labs CBC & Chem 7: 08/03/16 Unknown 08/03/16 Unknown Labs: Abnormal Lab Results 08/03/16 08/03/16 08/02/16 Unknown Unknown 19:15 RBC 3.87 L Hct 35.9 L [place] % (Auto) 14.7 H Lymph # 1.3 L [place] # 1.0 H Sodium 132 L Chloride 93 L 86 L Carbon Dioxide 21 L Anion Gap 20.0 H 23.0 H BUN 90 H 105 H* Creatinine 3.9 H 5.1 H* Glucose 59 L Uric Acid 13.4 H Calcium 7.0 L 7.6 L Phosphorus 5.2 H Total Protein 5.2 L Albumin 2.8 L 3.1 L Meds: Medications Acetaminophen (Tylenol) 650 mg PO Q6HP PRN PRN Reason: PAIN/FEVER > 101 Calcium Gluconate (Calcium Gluconate) 9.3 meq IV ONCE ONE Stop: 08/03/16 10:31 Calcium Gluconate (Calcium Gluconate) 9.3 meq IV ONCE ONE Stop: 08/03/16 07:35 Calcium Gluconate (Calcium Gluconate) 9.3 meq IV ONCE ONE Stop: 08/03/16 12:31 Heparin Sodium (Porcine) (Heparin) 5,000 unit SQ Q12 [facility] Last Admin: 08/02/16 21:19 Dose: Not Given Lactated Ringer's (Lactated Ringers) 1,000 mls @ 200 mls/hr IV .Q5H [facility] Stop: 08/03/16 12:33 Last Admin: 08/03/16 07:39 Dose: 200 mls/hr Naloxone HCl (Narcan) 0.1 mg IV Q2MIN PRN PRN Reason: Opiate Reversal Ondansetron HCl (Zofran) 4 mg IV Q4HP PRN PRN Reason: Nausea And Vomiting Pantoprazole Sodium (Protonix) 40 mg IV QAMAC [facility] Last Admin: 08/03/16 07:29 Dose: 40 mg Medical - PN: A/P - Time Spent With Patient Total time spent is greater than 50% in coordination of care (as documented) at patient's floor/unit and/or counseling patient: (1) Acute kidney injury Status: Acute Current Visit: Yes (2) Dehydration Status: Acute Current Visit: Yes (3) Hyponatremia Status: Acute Current Visit: Yes (4) Bowel obstruction Status: Acute Current Visit: Yes Medical - PN: Qual - Stroke Symptom Onset Unknown: No - VTE Deep Vein Thrombosis/Pulmonary Embolism Present on Admission: No
--- NOTE | 2016-08-03 08:05 | Nephrology Progress Note ---
Subjective Patient information: Note initiated : 08/03/16 at 8:05 am Service Date, if different from initiated Date: [] Patient: Andi Diallo 75 y/o F admitted on 08/02/16 for brown emesis, dehydration. Chief Complaint: [] Principal diagnosis: SBO with CHADWICK Interval history: Pt was started on IVFs with improved renal function. CT with po contrast showing complete obstruction. Pt to undergo surgery today. Had no complaints when seen except for dry throat. Daughters were at bedside. Pt was in great spirits. Appreciate Dr Glass's and Dr Hernandez's help in managing this patient Objective - Vital Signs Vital signs: Vital Signs Temp Resp BP Pulse Ox 08/03/16 07:48 16 08/03/16 04:00 98.5 F 16 107/56 96 08/02/16 23:59 98.6 F 16 108/69 94 08/02/16 20:00 98.7 F 16 117/58 95 08/02/16 17:23 98.8 F 16 127/90 96 Intake and Output 08/02/16 08/03/16 08/03/16 21:59 05:59 13:59 Intake Total 1950 / 3475 1999 917 / 917 Output Total 400 / 2200 1325 / 1325 500 / 500 Balance 1550 / 1275 675 / 675 417 / 417 Intake: IV 1000 / 1000 1999 917 / 917 Sodium Chloride 0.9% 1, 1000 / 1000 1999 917 / 917 000 ml @ 250 mls/hr IV . Q4H [facility] Rx#:[id number] Other 950 / 950 Output: Gastric Drainage 150 / 1949 750 / 750 250 / 250 Left Nare NG/OG 150 / 1950 750 / 750 Urine Catheter Amount 250 / 250 575 / 575 Void Amount 250 / 250 Uretheral (Chamberlain) 250 / 250 Other: Weight 126 lb 2 oz Intake & Output: Intake & Output 08/02/16 08/03/16 08/03/16 21:59 05:59 13:59 Intake Total 1950 / 3475 1999 917 / 917 Output Total 400 / 2200 1325 / 1325 500 / 500 Balance 1550 / 1275 675 / 675 417 / 417 Weight 126 lb 2 oz Intake: IV 1000 / 1000 1999 917 / 917 Sodium Chloride 0.9% 1, 1000 / 1000 1999 / 1999 917 / 917 000 ml @ 250 mls/hr IV . Q4H [facility] Rx#:[id number] Other 950 / 950 Output: Gastric Drainage 150 / 1949 750 / 750 250 / 250 Left Nare NG/OG 150 / 1949 750 / 750 Urine Catheter Amount 250 / 250 575 / 575 Void Amount 250 / 250 Uretheral (Chamberlain) 250 / 250 - General Appearance General appearance: well-developed (very pleasant, comfortable), well-nourished , appears started age EENT: mucous membranes moist (NGT in place) Neck: supple Respiratory: clear (no wheezing/crackles) Cardiology: no edema, regular rate, regular rhythm, normal S1, normal S2 Gastrointestinal: absent bowel sounds, no tenderness, no guarding, distended ( mildly, unchanged since yesterday) Integumentary: no rash, warm and dry Neurologic: no focal deficit, no asterixis, alert and oriented x3 Musculoskeletal: no deformities, no erythema Psychiatric: mood/affect appropriate - Lab 08/03/16 Unknown 08/03/16 Unknown Most recent lab results Calcium 7.0 mg/dl (8.6-10.4) L 08/03/16 Unknown Phosphorus 5.2 mg/dL (2.7-4.5) H 08/03/16 Unknown Magnesium 2.2 mg/dL (1.6-2.5) 08/03/16 Unknown Assessment and Plan (1) Acute kidney injury Prerenal - secondary to vomiting and poor po intake Improved with fluid repletion from 5.5 -> 3.9 u/o 800 cc since admission continue to dose meds for eGFR < 5 avoid nephrotoxins pt to undergo surgery today Imp to avoid hetastarch Aim to keep SBPs > 110-120 continue to monitor u/o. daily weights Status: Acute Priority: High Comment: improving (2) Dehydration Uric acid 13.9 continue IVFs Status: Acute (3) Hyponatremia 2/2 N/V and poor po intake Na now improved to 134 continue IV fluids and monitor Status: Acute (4) Bowel obstruction complete obstruction at the level of the pelvis to undergo surgery today Status: Acute Priority: High Qualifiers: Intestinal obstruction type: obstruction due to adhesions Qualified Code(s) : K56.5 - Intestinal adhesions [bands] with obstruction (postprocedural) ( postinfection) (5) Hyperphosphatemia 2/2 CHADWICK Pt is NPO monitor for now Status: Acute (6) Hypokalemia Pt NPO and was receiving NS withour K K is being repleted Status: Acute (7) Metabolic acidosis 2/2 CHADWICK + dilutional 2/2 administration of bicarb free fluid Will change to LR for now monitor levels Status: Acute (8) Hypocalcemia related to CHADWICK and hyperphosphatemia will give 3 doses of IV calcium gluconate for now will monitor for now Status: Acute
[2016-08-03] MEDS ORDERED: POTASSIUM CHLORIDE 40 MEQ in DEXTROSE 5% IN WATER 500 ML IV ONE (08:39)
[2016-08-03] MEDS: CALCIUM GLUCONATE 9.3 MEQ in DEXTROSE 5% IN WATER 50 ML IV SCH ×4 (08:40→16:42)
--- NOTE | 2016-08-03 08:43 | Cat Scan Report ---
CLINICAL INFORMATION: Mechanical small bowel obstruction. Follow-up. COMPARISON: Previous plain film examination and CT scan dated 08/02/2016 TECHNIQUE: Axial images were obtained through the abdomen and pelvis. Sagittally and coronally reformatted images. Oral contrast material was given through the nasogastric tube the brain prior to this examination. The patient was placed on suction approximately five hours prior to the scan. FINDINGS: There is no contrast material within the stomach. There is contrast material within small bowel. There is small bowel dilatation which is slightly improved. This is probably related to nasogastric obstruction. Dilated small bowel currently measures approximately 3.5 cm in cross-sectional diameter. There is a transition point in the anterior midline pelvis. Appearance remains consistent with mechanical small bowel obstruction related to postsurgical effusions. Patient has undergone prior hysterectomy. There is no pneumoperitoneum. There is minimal free intraperitoneal fluid in the pelvis. No bowel wall thickening. No pneumatosis. No biliary or portal venous gas. There is mild bilateral lower lobe atelectasis. Liver, spleen, pancreas, adrenal glands, and kidneys are negative to the limits of noncontrast enhanced examination. IMPRESSION: 1. Persistent mechanical small bowel obstruction. Findings are consistent with transition point in the anterior midline lower pelvis. 2. Minimal free intraperitoneal fluid. No bowel wall thickening. No pneumoperitoneum. No venous gas. Interpreted and Authenticated by: Liborio Alvarado 08/03/16
[2016-08-03] MEDS: HEPARIN 5,000 UNIT/ML VIAL SQ SCH ×2 (09:02→21:02)
--- NOTE | 2016-08-03 09:07 | General Surgery Progress Note ---
Subjective Patient reports: no new complaints, no flatus, no bowel movement Narrative: Note initiated : 08/03/16 at 9:03 am Service Date, if different from initiated Date: [] Patient: Andi Diallo 75 y/o F admitted on 08/02/16 for brown emesis, dehydration. Chief Complaint: [] UO has increased overnight - BUN & Cr improving. Moderate amount out NGT. No abdominal pain. Objective Temp Pulse Resp BP Pulse Ox 98.8 F 96 H 16 106/54 96 08/03/16 08:00 08/02/16 16:45 08/03/16 08:00 08/03/16 08:00 08/03/16 08:00 - Additional Data Intake & Output - Last 24 hours: Intake & Output 08/01/16 08/02/16 08/03/16 08/04/16 05:59 05:59 05:59 05:59 Intake Total 3950 / 5475 917 / 917 Output Total 1725 / 3525 500 / 500 Balance 2225 / 1950 417 / 417 Weight 126 lb 2 oz - General physical appearance no distress - Respiratory normal expansion, normal respiratory effort, clear to auscultation - Cardiovascular Cardiovascular exam: Present: normal rate and rhythm - Abdomen soft, non tender, bowel sounds (none), distended (unchanged from last night) Hernia: none - Labs 08/03/16 Unknown 08/03/16 Unknown Diabetes panel 08/02/16 08/03/16 Range/Units 19:15 Unknown Sodium 132 L 134 (133-145) mmol/L Potassium 3.9 3.3 (3.3-5.1) mmol/L Chloride 86 L 93 L (96-108) mmol/L Carbon Dioxide 23 21 L (22-30) mmol/L BUN 105 H* 90 H (8-23) mg/dl Creatinine 5.1 H* 3.9 H (0.6-1.1) mg/dl Glucose 72 59 L (70-105) mg/dL Calcium 7.6 L 7.0 L (8.6-10.4) mg/dl AST 17 17 (0-37) U/l ALT 12 10 (0-40) U/l Alkaline Phosphatase 48 45 (39-117) U/L Total Protein 6.0 5.2 L (5.9-8.4) gm/dL Albumin 3.1 L 2.8 L (3.2-5.2) gm/dL Triglycerides 137 (<150) mg/dl Calcium panel 08/02/16 08/03/16 Range/Units 19:15 Unknown Calcium 7.6 L 7.0 L (8.6-10.4) mg/dl Phosphorus 5.2 H (2.7-4.5) mg/dL Albumin 3.1 L 2.8 L (3.2-5.2) gm/dL Pituitary panel 08/02/16 08/03/16 Range/Units 19:15 Unknown Sodium 132 L 134 (133-145) mmol/L Potassium 3.9 3.3 (3.3-5.1) mmol/L Chloride 86 L 93 L (96-108) mmol/L Carbon Dioxide 23 21 L (22-30) mmol/L BUN 105 H* 90 H (8-23) mg/dl Creatinine 5.1 H* 3.9 H (0.6-1.1) mg/dl Glucose 72 59 L (70-105) mg/dL Calcium 7.6 L 7.0 L (8.6-10.4) mg/dl Adrenal panel 08/02/16 08/03/16 Range/Units 19:15 Unknown Sodium 132 L 134 (133-145) mmol/L Potassium 3.9 3.3 (3.3-5.1) mmol/L Chloride 86 L 93 L (96-108) mmol/L Carbon Dioxide 23 21 L (22-30) mmol/L BUN 105 H* 90 H (8-23) mg/dl Creatinine 5.1 H* 3.9 H (0.6-1.1) mg/dl Glucose 72 59 L (70-105) mg/dL Calcium 7.6 L 7.0 L (8.6-10.4) mg/dl Total Bilirubin 0.4 0.4 (0.0-1.0) mg/dL AST 17 17 (0-37) U/l ALT 12 10 (0-40) U/l Alkaline Phosphatase 48 45 (39-117) U/L Total Protein 6.0 5.2 L (5.9-8.4) gm/dL Albumin 3.1 L 2.8 L (3.2-5.2) gm/dL - Imaging CT scan - abdomen: report reviewed, image reviewed (has complete mechanical obstruction in pelvis with no passage of contrast) Medical - PN: A/P - Time Spent With Patient Total time spent is greater than 50% in coordination of care (as documented) at patient's floor/unit and/or counseling patient: 25 - 35 minutes (1) Acute kidney injury Problem details: improving Status: Acute Current Visit: Yes (2) Bowel obstruction Problem details: appears to be complete with no history of BM/flatus for 5 days and what is visible on CT Status: Acute Assessment and plan: To OR for laparotomy. With location of obstruction in pelvis as well as distended small bowel - will proceed with laparotomy instead of laparoscopy. Procedure, indications, alternatives, expected benefits, possible risks & complications including but not limited to infection, bowel injury, possible need for bowel resection and/or other more invasive procedures discussed with patient and her 2 daughters. All state they understand & agree to proceed. Reviewed with Dr. Glass also Current Visit: Yes (3) Dehydration Status: Acute Current Visit: Yes (4) Hx of hysterectomy Problem details: (Dr. Rowley)--ovaries in, cervix out. Bimanual exam 09/2010. Mammogram 04/18/10 Status: Chronic Current Visit: Yes
--- NOTE | 2016-08-03 09:56 | Internal Med Progress Note ---
Medical - PN: Subj Patient information: Note initiated : 08/03/16 at 9:55 am Service Date, if different from initiated Date: [] Patient: Andi Diallo a 75 y/o F admitted on 08/02/16 for brown emesis, dehydration. Chief Complaint: [] Interval history: 08/02: Ms. Diallo is a 75 year old female with h/o hysterectomy in the past, presents to the ER with complaints of nausea and vomiting going on since thursday (5 days) The patient symptoms started at night. She had 3-4 bouts of vomiting then and nausea, her symptoms somewhat got better, but she was not feeling well, she therefore presented to the ER on , Where she was evaluated, her creat was 2.2 then, she was given zofran and advised to follow up with PCP. The pt condition worsened again, with repeated bouts of vomiting, and nausea, no blood in vomitis, no aggravating or relieving factor, she notes to have poor appetitie. She presented to the ER again today. CXR abdomen shows that she has low level pelvic obstruction. She has REnal failure and severe dehydration. Medicine was asked to admit the patient , Surgery consulted from the ER.The patient is making very little urine, made a few ml in the ER for analysis and a little before she came in, She has not had any BM or Gas that she can remember, Last BM was 1 week ago. Given severe dehydration and Acute kidney injury with Creat 5.5, and BUN 104, the patient will be admitted to telemetery for further management. 08/03: Pt seen examined, doing well, no acute overnight events, She still has NG tube to wall suction, Guillory in place with good Urine output. She is on LR with 200cc / hr fluid, renal function better. K borderline, replace CT done this AM shows that the obstruction persisits, Plan to take her to the OR today. Advised to avoid hypotension during surgery, surgery at this time must be done to relieve obstruction. Pertinent ROS: Denies headache, dizziness Denies chest pain, palpitations Denies cough or shortness of breath Denies abdominal pain, nausea or vomiting. - Constitutional Vitals: Vital Signs Temp Pulse Resp BP Pulse Ox 98.8 F 96 H 16 106/54 96 08/03/16 08:00 08/02/16 16:45 08/03/16 08:00 08/03/16 08:00 08/03/16 08:00 Period Temp Pulse Resp BP Sys/Lewis Pulse Ox Last 24 Hr 98.5 F-98.8 F 16-16 106-127/54-90 94-96 Intake and Output 08/02/16 08/03/16 08/03/16 21:59 05:59 13:59 Intake Total 1950 / 3475 1999 987 / 987 Output Total 400 / 2200 1325 / 1325 500 / 500 Balance 1550 / 1275 675 / 675 487 / 487 Weight 126 lb 2 oz Intake & Output: Intake & Output 08/02/16 08/03/16 08/03/16 21:59 05:59 13:59 Intake Total 1950 / 3475 1999 987 / 987 Output Total 400 / 2200 1325 / 1325 500 / 500 Balance 1550 / 1275 675 / 675 487 / 487 Weight 126 lb 2 oz Intake: IV 1000 / 1000 1999 987 / 987 Sodium Chloride 0.9% 1, 1000 / 1000 1999 917 / 917 000 ml @ 250 mls/hr IV . Q4H RUDDY Rx#:[id number] Dextrose 5% in Water 50 70 / 70 ml @ 140 mls/hr IV TID@ 0800,1030,1230 RUDDY with Calcium Gluconate 9.3 Meq Rx#:[id number] Other 950 / 950 Output: Gastric Drainage 150 / 1950 750 / 750 250 / 250 Left Nare NG/OG 150 / 1950 750 / 750 Urine Catheter Amount 250 / 250 575 / 575 Void Amount 250 / 250 Uretheral (Guillory) 250 / 250 Exam: Constitutional; Afebrile, cooperative, alert, not in distress. Eyes- No icterus, Pupils equal, reactive, No periorbital swelling Ears- Ext ear normal, hearing normal to conversation. Neck- Midline trachea, supple Respiratory system: Air Entry equal on both sides, No crackles or wheezing, no rhonchi. CVS- Rate rhythm regular, S1,S2 heard, no gallop, no rub. Abdomen- Soft nontender abdomen, no organomegaly, no tenderness, no guarding or rigidity, SHIP RUNNER- AOOx3, moving all extremities, no focal deficit noted. Medical - PN: Obj Da - Labs CBC & Chem 7: 08/03/16 Unknown 08/03/16 Unknown Labs: Abnormal Lab Results 08/03/16 08/03/16 08/02/16 Unknown Unknown 19:15 RBC 3.87 L Hct 35.9 L [place] % (Auto) 14.7 H Lymph # 1.3 L [place] # 1.0 H Sodium 132 L Chloride 93 L 86 L Carbon Dioxide 21 L Anion Gap 20.0 H 23.0 H BUN 90 H 105 H* Creatinine 3.9 H 5.1 H* Glucose 59 L Uric Acid 13.4 H Calcium 7.0 L 7.6 L Phosphorus 5.2 H Total Protein 5.2 L Albumin 2.8 L 3.1 L Meds: Medications Acetaminophen (Tylenol) 650 mg PO Q6HP PRN PRN Reason: PAIN/FEVER > 101 Heparin Sodium (Porcine) (Heparin) 5,000 unit SQ Q12 [facility] Last Admin: 08/03/16 09:02 Dose: Not Given Lactated Ringer's (Lactated Ringers) 1,000 mls @ 200 mls/hr IV .Q5H [facility] Stop: 08/03/16 12:33 Last Admin: 08/03/16 07:39 Dose: 200 mls/hr Calcium Gluconate 9.3 meq/ (Dextrose) 70 mls @ 140 mls/hr IV TID@0800,1030, 1230 [facility] Stop: 08/03/16 12:59 Last Infusion: 08/03/16 09:18 Dose: Infused Potassium Chloride 40 meq/ (Dextrose) 520 mls @ 130 mls/hr IV ONCE ONE Stop: 08/03/16 12:38 Last Admin: 08/03/16 09:18 Dose: 130 mls/hr Cefoxitin Sodium 1 gm/ (Dextrose) 50 mls @ 100 mls/hr IV PREOP [facility] Stop: 08/03/16 09:44 Naloxone HCl (Narcan) 0.1 mg IV Q2MIN PRN PRN Reason: Opiate Reversal Ondansetron HCl (Zofran) 4 mg IV Q4HP PRN PRN Reason: Nausea And Vomiting Pantoprazole Sodium (Protonix) 40 mg IV QAMAC [facility] Last Admin: 08/03/16 07:29 Dose: 40 mg Medical - PN: A/P - Time Spent With Patient Total time spent is greater than 50% in coordination of care (as documented) at patient's floor/unit and/or counseling patient: (1) Acute kidney injury Problem details: improving Status: Acute Current Visit: Yes (2) Dehydration Status: Acute Current Visit: Yes (3) Bowel obstruction Problem details: appears to be complete with no history of BM/flatus for 5 days and what is visible on CT Status: Acute Current Visit: Yes (4) CAD (coronary artery disease) Problem details: Acute cardiac [place] 11/18/09--Echo and Cardiac Cath ([place]) showing small vessel thrombus--Plavix, then d/c'd by Jamila Bustos secondary to right arm bleed Status: Chronic Current Visit: No - Narrative A/P Narrative: Acute renal failure: Creat improving, fena < 1, Urine sodium < 20, IV fluids oingoing, appreciate nephrology input. Dehydration due to nausea and vomiting: On IV fluids SBO obstruction: Surgery today Hypokalemia: Replace k today DVT hep sq Diet npo Full code Medical - PN: Qual - Stroke Symptom Onset Unknown: No - VTE Deep Vein Thrombosis/Pulmonary Embolism Present on Admission: No
[2016-08-03] MEDS ORDERED: oxyCODONE/APAP 5/325MG TABLET PO PRN (11:27)
[2016-08-03] MEDS ORDERED: KETOROLAC 30 MG/ML VIAL IV PRN (11:27)
[2016-08-03] MEDS ORDERED: HYDROcodone/APAP 5/325MG TABLET PO PRN (11:27)
[2016-08-03] MEDS ORDERED: cefOXitin 1 GM in DEXTROSE 5% IN WATER 50 ML IV SCH (12:00)
[2016-08-03] MEDS ORDERED: DEXAMETHASONE 10 MG/ML VIAL IV ONE (12:20)
[2016-08-03] MEDS ORDERED: SUCCINYLCHOLINE 20 MG/ML ML IV ONE (12:20)
[2016-08-03] MEDS ORDERED: PROPOFOL 200 MG/20 ML VIAL IV ONE (12:20)
[2016-08-03] MEDS ORDERED: LIDOCAINE HCL/PF 100 MG/5 ML SYRINGE IV ONE (12:20)
[2016-08-03] MEDS ORDERED: GLYCOPYRROLATE 0.2 MG/ML VIAL IV ONE (12:20)
[2016-08-03] MEDS ORDERED: ePHEDrine 50 MG/ML AMPUL IV ONE (12:20)
[2016-08-03] MEDS ORDERED: ROCURONIUM 10 MG/ML ML IV ONE (12:20)
[2016-08-03] MEDS ORDERED: MIDAZOLAM 5 MG/5 ML VIAL IV ONE (12:20)
[2016-08-03] MEDS ORDERED: fentaNYL 250 MCG/5 ML VIAL IV ONE (12:20)
[2016-08-03] MEDS ORDERED: NEOSTIGMINE 1 MG/ML VIAL IV ONE (12:20)
[2016-08-03] MEDS ORDERED: ONDANSETRON 4 MG/2 ML VIAL IV ONE (12:20)
[2016-08-03] MEDS ORDERED: PROMETHAZINE 25 MG/ML VIAL IV PRN (12:52)
[2016-08-03] MEDS ORDERED: HYDROmorphone 2 MG/ML SYRINGE IV PRN (12:52)
[2016-08-03] MEDS ORDERED: NALOXONE HCL 0.4 MG/ML VIAL IV PRN (12:52)
[2016-08-03] MEDS ORDERED: MEPERIDINE 25 MG/ML SYRINGE IV PRN (12:52)
[2016-08-03] MEDS ORDERED: FLUMAZENIL 0.1 MG/ML ML IV PRN (12:52)
[2016-08-03] MEDS ORDERED: BENZOCAINE/MENTHOL 1 LOZENGE PO PRN (12:52)
[2016-08-03] MEDS ORDERED: fentaNYL 100 MCG/2 ML VIAL IV PRN (12:52)
[2016-08-03] MEDS ORDERED: ONDANSETRON 4 MG/2 ML VIAL IV PRN (12:52)
[2016-08-03] MEDS ORDERED: diphenhydrAMINE 50 MG/ML VIAL IV PRN (12:52)
[2016-08-03] MEDS ORDERED: IPRATROPIUM/ALBUTEROL 3 ML AMPUL.NEB NEB PRN (12:52)
[2016-08-03] MEDS ORDERED: LACTATED RINGERS 250 ML IV PRN (12:52)
--- NOTE | 2016-08-03 13:12 | General Surgery Procedure Note ---
Date of procedure: Note initiated : 08/03/16 at 1:10 pm Service Date, if different from initiated Date: [] Pre-op diagnosis: SBO Post-op diagnosis: same Procedure: LYSIS OF ADHESIONS Findings: OMENTUM ADHESED TO VAGINAL CUFF WITH SMALL BOWEL INCARCERATED THROUGH INTERNAL HERNIA. NO BOWEL NECROSIS OR COMPROMISE. COLON FULL OF STOOL. NO OTHER ABNORMALITIES NOTED IN REST OF ABDOMEN Grafts/Implants: NONE Anesthesia: GETA Surgeon: Ehsan Hernandez Dental Surgeon: Jhonathan Shi Estimated blood loss: 25 Pathology: none sent Description of procedure: OPEN LAPAROTOMY AND LYSIS OF OMENTAL ADHESIONS Condition: critical Disposition: ICU (BACK TO ICU FOR MANAGEMENT OF ARF)
[2016-08-03] MEDS ORDERED: BUPIVACAINE W/EPI 0.5% 50 ML VIAL IJ ONE (14:46)
[2016-08-03] MEDS: LACTATED RINGERS 1,000 ML IV SCH ×2 (16:58→23:40)
[2016-08-03 18:55] LABS: ALT/SGPT 10 U/l (0-40); Albumin 2.5 gm/dL (3.2-5.2); Albumin/Globulin Ratio 1.1 (1.0-2.3); Alkaline Phosphatase 38 U/L (39-117); Blood Urea Nitrogen 60 mg/dl (8-23); Magnesium 1.9 mg/dL (1.6-2.5); Phosphorous 4.6 mg/dL (2.7-4.5)
[2016-08-04 06:01] LABS: Basophils # (Auto) 0 K/mcL (0.0-0.3); Basophils % (Auto) 0.2 % (0.0-2.0); Eosinophils # (Auto) 0 K/mcL (0.0-0.7); Eosinophils % (Auto) 0 % (0.0-7.0); Granulocytes % (Auto) 84.9 % (38.0-78.0); Lymphocytes # (Auto) 0.7 K/mcL (1.5-4.8); Lymphocytes % (Auto) 8.3 % (15.5-49.0); Mean Cell Volume 92.9 fL (80.0-100.0); Mean Corpuscular HGB Conc 32.5 g/dL (31.0-36.0); Mean Corpuscular Hemoglobin 30.2 pg (26.0-34.0); Monocytes # (Auto) 0.6 K/mcL (0.1-0.9); Monocytes % (Auto) 6.6 % (1.0-9.0); Platelet Count 220 K/mcL (140-440); RBC 3.52 M/mcL (4.00-5.20); Red Cell Distribution Width 13.1 % (11.5-14.5)
[2016-08-04 06:30] LABS: ALT/SGPT 9 U/l (0-40); Albumin 2.4 gm/dL (3.2-5.2); Albumin/Globulin Ratio 1.1 (1.0-2.3); Alkaline Phosphatase 36 U/L (39-117); Bilirubin,Direct < 0.2 mg/dL (0.0-0.3); Blood Urea Nitrogen 50 mg/dl (8-23); Gamma Glutamyl Transpeptidase 11 U/L (5-36); Magnesium 1.9 mg/dL (1.6-2.5); Phosphorous 3.9 mg/dL (2.7-4.5); Uric Acid 10.6 mg/dL (2.5-8.0)
[2016-08-04] MEDS: LACTATED RINGERS 1,000 ML IV SCH ×2 (06:32→21:25)
[2016-08-04] MEDS: PANTOPRAZOLE 40 MG VIAL IV SCH (07:25)
--- NOTE | 2016-08-04 08:08 | General Surgery Progress Note ---
Subjective Patient reports: no new complaints, feels better, no flatus, no bowel movement Narrative: Note initiated : 08/04/16 at 8:05 am Service Date, if different from initiated Date: [] Patient: Andi Diallo 75 y/o F admitted on 08/02/16 for brown emesis, dehydration. Chief Complaint: [] Doing quite well - NGT out put less. Not using any analgesics. Objective Temp Pulse Resp BP Pulse Ox 98.4 F 78 16 110/55 95 08/04/16 04:00 08/03/16 14:00 08/04/16 04:00 08/04/16 04:00 08/04/16 06:47 - Additional Data Intake & Output - Last 24 hours: Intake & Output 08/02/16 08/03/16 08/04/16 08/05/16 05:59 05:59 05:59 05:59 Intake Total 3950 / 5475 4922 / 4922 1000 / 1000 Output Total 1725 / 3525 3100 / 3100 Balance 2225 / 1950 1822 / 1822 1000 / 1000 Weight 126 lb 2 oz 130 lb 1 oz - General physical appearance well developed, well nourished, no distress - Respiratory normal expansion, normal respiratory effort, clear to percussion, clear to auscultation - Cardiovascular Cardiovascular exam: Present: normal rate and rhythm - Abdomen soft, non tender, bowel sounds (absent) - Musculoskeletal other (neg Homans neg edema) - Labs 08/04/16 03:55 08/04/16 03:55 Diabetes panel 08/03/16 08/04/16 Range/Units 17:56 03:55 Sodium 135 137 (133-145) mmol/L Potassium 4.2 4.6 (3.3-5.1) mmol/L Chloride 98 102 (96-108) mmol/L Carbon Dioxide 21 L 22 (22-30) mmol/L BUN 60 H 50 H (8-23) mg/dl Creatinine 2.2 H 1.7 H (0.6-1.1) mg/dl Glucose 113 H 82 (70-105) mg/dL Calcium 9.2 8.5 L (8.6-10.4) mg/dl AST 14 14 (0-37) U/l ALT 10 9 (0-40) U/l Alkaline Phosphatase 38 L 36 L (39-117) U/L Total Protein 4.7 L 4.5 L (5.9-8.4) gm/dL Albumin 2.5 L 2.4 L (3.2-5.2) gm/dL Triglycerides 91 (<150) mg/dl Calcium panel 08/03/16 08/04/16 Range/Units 17:56 03:55 Calcium 9.2 8.5 L (8.6-10.4) mg/dl Phosphorus 4.6 H 3.9 (2.7-4.5) mg/dL Albumin 2.5 L 2.4 L (3.2-5.2) gm/dL Pituitary panel 08/03/16 08/04/16 Range/Units 17:56 03:55 Sodium 135 137 (133-145) mmol/L Potassium 4.2 4.6 (3.3-5.1) mmol/L Chloride 98 102 (96-108) mmol/L Carbon Dioxide 21 L 22 (22-30) mmol/L BUN 60 H 50 H (8-23) mg/dl Creatinine 2.2 H 1.7 H (0.6-1.1) mg/dl Glucose 113 H 82 (70-105) mg/dL Calcium 9.2 8.5 L (8.6-10.4) mg/dl Adrenal panel 08/03/16 08/04/16 Range/Units 17:56 03:55 Sodium 135 137 (133-145) mmol/L Potassium 4.2 4.6 (3.3-5.1) mmol/L Chloride 98 102 (96-108) mmol/L Carbon Dioxide 21 L 22 (22-30) mmol/L BUN 60 H 50 H (8-23) mg/dl Creatinine 2.2 H 1.7 H (0.6-1.1) mg/dl Glucose 113 H 82 (70-105) mg/dL Calcium 9.2 8.5 L (8.6-10.4) mg/dl Total Bilirubin 0.5 0.4 (0.0-1.0) mg/dL AST 14 14 (0-37) U/l ALT 10 9 (0-40) U/l Alkaline Phosphatase 38 L 36 L (39-117) U/L Total Protein 4.7 L 4.5 L (5.9-8.4) gm/dL Albumin 2.5 L 2.4 L (3.2-5.2) gm/dL BUN & Cr returning to normal Medical - PN: A/P - Time Spent With Patient Total time spent is greater than 50% in coordination of care (as documented) at patient's floor/unit and/or counseling patient: 15 - 24 minutes (1) Acute kidney injury Problem details: improving Status: Acute Current Visit: Yes (2) Bowel obstruction Problem details: appears to be complete with no history of BM/flatus for 5 days and what is visible on CT Status: Acute Assessment and plan: To OR for laparotomy. With location of obstruction in pelvis as well as distended small bowel - will proceed with laparotomy instead of laparoscopy. Procedure, indications, alternatives, expected benefits, possible risks & complications including but not limited to infection, bowel injury, possible need for bowel resection and/or other more invasive procedures discussed with patient and her 2 daughters. All state they understand & agree to proceed. Reviewed with Dr. Glass also Current Visit: Yes (3) Dehydration Status: Acute Current Visit: Yes (4) Hx of hysterectomy Problem details: [id number] (Dr. Rowley)--ovaries in, cervix out. Bimanual exam 09/2010. Mammogram 04/18/10 Status: Chronic Current Visit: Yes - Narrative A/P Narrative: Still no evidence significant bowel activity except diminishing NGT output Might be candidate for trial NGT clamping Introduced to Dr. Booth who will assume care
[2016-08-04] MEDS ORDERED: NACL 0.9% IV SCH (08:30)
[2016-08-04] MEDS ORDERED: SODIUM BICARBONATE ADULT IV SCH ×2 (08:30)
[2016-08-04] MEDS ORDERED: SODIUM CHLORIDE 0.45% IV SCH ×3 (08:30→17:00)
[2016-08-04] MEDS ORDERED: KCL 20 MEQ IV SCH (08:30)
--- NOTE | 2016-08-04 08:42 | Nephrology Progress Note ---
Subjective Patient information: Note initiated : 08/04/16 at 8:40 am Service Date, if different from initiated Date: [] Patient: Andi Diallo 75 y/o F admitted on 08/02/16 for brown emesis, dehydration. Chief Complaint: [] Principal diagnosis: SBO with CHADWICK Interval history: Pt now s/p surgery for SBO. Doing well. NGT output reduced. Renal function improving with improved u/o. Feels good. Feels abdomen to be sore. But no other complaints. Objective - Vital Signs Vital signs: Vital Signs Temp Pulse Pulse Pulse Resp BP Pulse Ox 08/04/16 08:00 97.9 F 83 16 112/66 95 08/04/16 06:47 95 08/04/16 04:00 98.4 F 16 110/55 95 08/04/16 00:00 98.4 F 16 105/52 95 08/03/16 20:00 98.2 F 20 106/55 97 08/03/16 16:00 98.9 F 16 102/59 94 08/03/16 14:00 98.1 F 85 84 78 16 103/68 97 08/03/16 13:45 98.8 F 85 79 78 16 117/53 98 08/03/16 13:30 98.8 F 85 84 78 16 124/54 97 08/03/16 13:20 98.8 F 85 85 78 18 123/66 99 08/03/16 13:15 98.8 F 99 H 99 H 78 17 121/94 98 08/03/16 11:07 78 97/69 93 Intake and Output 08/03/16 08/04/16 08/04/16 21:59 05:59 13:59 Intake Total 635 / 635 1000 / 1000 1000 / 1000 Output Total 375 / 375 625 / 625 Balance 260 / 260 375 / 375 1000 / 1000 Intake: IV 635 / 635 1000 / 1000 1000 / 1000 Dextrose 5% in Water 50 65 / 65 ml @ 140 mls/hr IV TID@ 0800,1030,1230 RUDDY with Calcium Gluconate 9.3 Meq Rx#:[id number] Lactated Ringers 1,000 ml 1000 / 1000 1000 / 1000 @ 150 mls/hr IV .Q6H40M RUDDY Rx#:[id number] Dextrose 5% in Water 500 520 / 520 ml @ 130 mls/hr IV ONCE ONE with Potassium Chloride 40 Meq Rx#: [id number] Dextrose 5% in Water 50 50 / 50 ml @ 100 mls/hr IV PREOP RUDDY with Mefoxin 1 gm Rx# :[id number] Oral 0 / 0 Output: Gastric Drainage 50 / 50 75 / 75 Left Nare NG/OG 50 / 50 75 / 75 Urine Catheter Amount 325 / 325 550 / 550 Other: Weight 130 lb 1 oz Intake & Output: Intake & Output 08/03/16 08/04/16 08/04/16 21:59 05:59 13:59 Intake Total 635 / 635 1000 / 1000 1000 / 1000 Output Total 375 / 375 625 / 625 Balance 260 / 260 375 / 375 1000 / 1000 Weight 130 lb 1 oz Intake: IV 635 / 635 1000 / 1000 1000 / 1000 Dextrose 5% in Water 50 65 / 65 ml @ 140 mls/hr IV TID@ 0800,1030,1230 RUDDY with Calcium Gluconate 9.3 Meq Rx#:[id number] Lactated Ringers 1,000 ml 1000 / 1000 1000 / 1000 @ 150 mls/hr IV .Q6H40M RUDDY Rx#:[id number] Dextrose 5% in Water 500 520 / 520 ml @ 130 mls/hr IV ONCE ONE with Potassium Chloride 40 Meq Rx#: [id number] Dextrose 5% in Water 50 50 / 50 ml @ 100 mls/hr IV PREOP RUDDY with Mefoxin 1 gm Rx# :[id number] Oral 0 / 0 Output: Gastric Drainage 50 / 50 75 / 75 Left Nare NG/OG 50 / 50 75 / 75 Urine Catheter Amount 325 / 325 550 / 550 - General Appearance General appearance: well-developed, well-nourished, appears started age EENT: mucous membranes dry (mild, NGT in place) Neck: supple Respiratory: clear (no wheezing/crackles) Cardiology: no edema, regular rate, regular rhythm, normal S1, normal S2 Gastrointestinal: absent bowel sounds (s/p surgery; bandage in place, celan and dry), no guarding Integumentary: no rash, warm and dry Neurologic: no focal deficit, no asterixis, alert and oriented x3 Psychiatric: mood/affect appropriate - Lab 08/04/16 03:55 08/04/16 03:55 Most recent lab results Calcium 8.5 mg/dl (8.6-10.4) L 08/04/16 03:55 Phosphorus 3.9 mg/dL (2.7-4.5) 08/04/16 03:55 Magnesium 1.9 mg/dL (1.6-2.5) 08/04/16 03:55 Assessment and Plan (1) Acute kidney injury Prerenal - secondary to vomiting and poor po intake Improved with fluid repletion from 5.5 -> 3.9 -> 1.7 this morning 550 cc of urine since surgery Electrolytes wnl. mildly low serum bicarbonate; was on LR will change to 0.45% saline + 75 mEq bicarb Labs ordered for 4 pm. Monitor Status: Acute Priority: High Comment: improving (2) Dehydration uric acid now down to 10.6 with hydration monitor levels Status: Acute (3) Hyponatremia 2/2 N/V and poor po intake resolved Status: Acute (4) Bowel obstruction complete obstruction at the level of the pelvis s/p surgery, doing well. Status: Acute Priority: High Qualifiers: Intestinal obstruction type: obstruction due to adhesions Qualified Code(s) : K56.5 - Intestinal adhesions [bands] with obstruction (postprocedural) ( postinfection) (5) Hyperphosphatemia was 2/2 CHADWICK now resolved with improved renal function Status: Acute (6) Hypokalemia K is now wnl monitor Status: Acute (7) Metabolic acidosis 2/2 CHADWICK + dilutional 2/2 administration of bicarb free fluid Will change to LR for now monitor levels Status: Acute (8) Hypocalcemia was related to CHADWICK and hyperphosphatemia now wnl Status: Acute
[2016-08-04] MEDS: HEPARIN 5,000 UNIT/ML VIAL SQ SCH ×2 (08:51→21:59)
[2016-08-04] MEDS ORDERED: SODIUM BICARBONATE IV SCH ×2 (09:00→17:00)
--- NOTE | 2016-08-04 09:39 | Internal Med Progress Note ---
Medical - PN: Subj Patient information: Note initiated : 08/04/16 at 9:35 am Service Date, if different from initiated Date: [] Patient: Andi Diallo a 75 y/o F admitted on 08/02/16 for Dehydration, Bowel Obstruction,Acute Kidney Injury. Chief Complaint: [] Interval history: 08/02: Ms. Diallo is a 75 year old female with h/o hysterectomy in the past, presents to the ER with complaints of nausea and vomiting going on since thursday (5 days) The patient symptoms started at night. She had 3-4 bouts of vomiting then and nausea, her symptoms somewhat got better, but she was not feeling well, she therefore presented to the ER on , Where she was evaluated, her creat was 2.2 then, she was given zofran and advised to follow up with PCP. The pt condition worsened again, with repeated bouts of vomiting, and nausea, no blood in vomitis, no aggravating or relieving factor, she notes to have poor appetitie. She presented to the ER again today. CXR abdomen shows that she has low level pelvic obstruction. She has REnal failure and severe dehydration. Medicine was asked to admit the patient , Surgery consulted from the ER.The patient is making very little urine, made a few ml in the ER for analysis and a little before she came in, She has not had any BM or Gas that she can remember, Last BM was 1 week ago. Given severe dehydration and Acute kidney injury with Creat 5.5, and BUN 104, the patient will be admitted to telemeter for further management. 08/03: Pt seen examined, doing well, no acute overnight events, She still has NG tube to wall suction, Guillory in place with good Urine output. She is on LR with 200cc / hr fluid, renal function better. K borderline, replace CT done this AM shows that the obstruction persisits, Plan to take her to the OR today. Advised to avoid hypotension during surgery, surgery at this time must be done to relieve obstruction. 08/04: Pt seen examined, doing well post op, no acute overnight events, renal function much better, good urine output, Post op day1 today, denies any passing of gas, no BM, but feels better. The patient still has NG tube to suction. Nephrology and surgery following. ok to xfer to med surg. Pertinent ROS: Denies headache, dizziness Denies chest pain, palpitations Denies cough or shortness of breath Mild abdominal pain, No nausea or vomiting. - Constitutional Vitals: Vital Signs Temp Pulse Resp BP Pulse Ox 97.9 F 83 16 112/66 95 08/04/16 08:00 08/04/16 08:00 08/04/16 08:00 08/04/16 08:00 08/04/16 08:00 Period Temp Pulse Resp BP Sys/Lewis Pulse Ox Last 24 Hr 97.9 F-98.9 F 78-99 16-20 97-124/52-94 93-99 Intake and Output 08/03/16 08/04/16 08/04/16 21:59 05:59 13:59 Intake Total 635 / 635 1000 / 1000 1000 / 1000 Output Total 375 / 375 625 / 625 Balance 260 / 260 375 / 375 1000 / 1000 Weight 130 lb 1 oz Intake & Output: Intake & Output 08/03/16 08/04/16 08/04/16 21:59 05:59 13:59 Intake Total 635 / 635 1000 / 1000 1000 / 1000 Output Total 375 / 375 625 / 625 Balance 260 / 260 375 / 375 1000 / 1000 Weight 130 lb 1 oz Intake: IV 635 / 635 1000 / 1000 1000 / 1000 Dextrose 5% in Water 50 65 / 65 ml @ 140 mls/hr IV TID@ 0800,1030,1230 RUDDY with Calcium Gluconate 9.3 Meq Rx#:[id number] Lactated Ringers 1,000 ml 1000 / 1000 1000 / 1000 @ 150 mls/hr IV .Q6H40M RUDDY Rx#:[id number] Dextrose 5% in Water 500 520 / 520 ml @ 130 mls/hr IV ONCE ONE with Potassium Chloride 40 Meq Rx#: [id number] Dextrose 5% in Water 50 50 / 50 ml @ 100 mls/hr IV PREOP RUDDY with Mefoxin 1 gm Rx# :[id number] Oral 0 / 0 Output: Gastric Drainage 50 / 50 75 / 75 Left Nare NG/OG 50 / 50 75 / 75 Urine Catheter Amount 325 / 325 550 / 550 Exam: Constitutional; Afebrile, cooperative, alert, not in distress. Eyes- No icterus, Pupils equal, reactive, No periorbital swelling Ears- Ext ear normal, hearing normal to conversation. Neck- Midline trachea, supple Respiratory system: Air Entry equal on both sides, No crackles or wheezing, no rhonchi. CVS- Rate rhythm regular, S1,S2 heard, no gallop, no rub. Abdomen- Soft nontender abdomen, no organomegaly, no tenderness, no guarding or rigidity, tenderness around surgical site. CORD CUTTER- AOOx3, moving all extremities, no focal deficit noted. Medical - PN: Obj Da - Labs CBC & Chem 7: 08/04/16 03:55 08/04/16 03:55 Labs: Abnormal Lab Results 08/04/16 08/04/16 08/03/16 03:55 03:55 Unknown RBC 3.52 L Hgb 10.6 L Hct 32.7 L Gran % 84.9 H Lymph % (Auto) 8.3 L [place] % (Auto) Lymph # 0.7 L [place] # Sodium Chloride 93 L Carbon Dioxide 21 L Anion Gap 20.0 H BUN 50 H 90 H Creatinine 1.7 H 3.9 H Glucose 59 L Uric Acid 10.6 H 13.4 H Calcium 8.5 L 7.0 L Phosphorus 5.2 H Alkaline Phosphatase 36 L Total Protein 4.5 L 5.2 L Albumin 2.4 L 2.8 L Globulin 2.1 L 08/03/16 08/03/16 08/02/16 Unknown 17:56 19:15 RBC 3.87 L Hgb Hct 35.9 L Gran % Lymph % (Auto) [place] % (Auto) 14.7 H Lymph # 1.3 L [place] # 1.0 H Sodium 132 L Chloride 86 L Carbon Dioxide 21 L Anion Gap 23.0 H BUN 60 H 105 H* Creatinine 2.2 H 5.1 H* Glucose 113 H Uric Acid Calcium 7.6 L Phosphorus 4.6 H Alkaline Phosphatase 38 L Total Protein 4.7 L Albumin 2.5 L 3.1 L Globulin Meds: Medications Acetaminophen (Tylenol) 650 mg PO Q6HP PRN PRN Reason: PAIN/FEVER > 101 Acetaminophen/Hydrocodone Bitart ([place] 5/325mg) 1 tab PO Q4HP PRN PRN Reason: Pain Heparin Sodium (Porcine) (Heparin) 5,000 unit SQ Q12 RUDDY Last Admin: 08/04/16 08:51 Dose: 5,000 unit Sodium Bicarbonate 75 meq/ (Sodium Chloride) 1,075 mls @ 125 mls/hr IV Q8H [facility] Last Admin: 08/04/16 09:21 Dose: 125 mls/hr Naloxone HCl (Narcan) 0.1 mg IV Q2MIN PRN PRN Reason: Opiate Reversal Ondansetron HCl (Zofran) 4 mg IV Q4HP PRN PRN Reason: Nausea And Vomiting Pantoprazole Sodium (Protonix) 40 mg IV QAMAC [facility] Last Admin: 08/04/16 07:25 Dose: 40 mg Medical - PN: A/P - Time Spent With Patient Total time spent is greater than 50% in coordination of care (as documented) at patient's floor/unit and/or counseling patient: (1) Acute kidney injury Problem details: improving Status: Acute Current Visit: Yes (2) Dehydration Status: Acute Current Visit: Yes (3) Bowel obstruction Problem details: appears to be complete with no history of BM/flatus for 5 days and what is visible on CT Status: Acute Current Visit: Yes (4) CAD (coronary artery disease) Problem details: Acute cardiac NH 11/18/09--Echo and Cardiac Cath ([facility]) showing small vessel thrombus--Plavix, then d/c'd by Jamila Bustos secondary to right arm bleed Status: Chronic Current Visit: No - Narrative A/P Narrative: SBO: Following with Surge[facility], s/p surgery, no bm yet, NG tube to suction, CHADWICK: Renal function much improved, creat improved, good urine output, following with nephrology Dehydartion: Improved, continue IV fljids for now. Diet NPO Code full Medical - PN: Qual - Stroke Symptom Onset Unknown: No - VTE Deep Vein Thrombosis/Pulmonary Embolism Present on Admission: No
[2016-08-04] MEDS ORDERED: HYDROcodone/APAP 5/325MG TABLET PO PRN (09:47)
[2016-08-04] MEDS ORDERED: NALOXONE HCL 0.4 MG/ML VIAL IV PRN (09:47)
[2016-08-04] MEDS ORDERED: ONDANSETRON 4 MG/2 ML VIAL IV PRN (09:47)
[2016-08-04] MEDS ORDERED: CALCIUM GLUCONATE 4.65 MEQ/10 ML VIAL IV ONE ×2 (09:47)
[2016-08-04] MEDS ORDERED: ACETAMINOPHEN 325 MG TABLET PO PRN (09:47)
[2016-08-04] MEDS ORDERED: ACETAMINOPHEN 1,000 MG/100 ML BOTTLE IV PRN (14:34)
[2016-08-04 17:01] LABS: ALT/SGPT 11 U/l (0-40); Albumin 2.9 gm/dL (3.2-5.2); Albumin/Globulin Ratio 1.2 (1.0-2.3); Alkaline Phosphatase 41 U/L (39-117); Blood Urea Nitrogen 41 mg/dl (8-23); Phosphorous 2.2 mg/dL (2.7-4.5)
[2016-08-04] MEDS ORDERED: WATER IV ONE (18:00)
[2016-08-04] MEDS ORDERED: POTASSIUM PHOSPHATE IV ONE (18:00)
[2016-08-04] MEDS ORDERED: DEXTROSE 5% IV ONE (18:00)
[2016-08-05] MEDS: LACTATED RINGERS 1,000 ML IV SCH (04:51)
[2016-08-05 07:14] LABS: Basophils # (Auto) 0 K/mcL (0.0-0.3); Basophils % (Auto) 0.3 % (0.0-2.0); Eosinophils # (Auto) 0.1 K/mcL (0.0-0.7); Eosinophils % (Auto) 1.3 % (0.0-7.0); Granulocytes % (Auto) 63.9 % (38.0-78.0); Lymphocytes # (Auto) 1.8 K/mcL (1.5-4.8); Lymphocytes % (Auto) 24.5 % (15.5-49.0); Mean Cell Volume 92.4 fL (80.0-100.0); Mean Corpuscular HGB Conc 32.4 g/dL (31.0-36.0); Monocytes # (Auto) 0.7 K/mcL (0.1-0.9); Platelet Count 211 K/mcL (140-440); Red Cell Distribution Width 12.6 % (11.5-14.5)
[2016-08-05 07:35] LABS: ALT/SGPT 10 U/l (0-40); Albumin 2.4 gm/dL (3.2-5.2); Albumin/Globulin Ratio 1.2 (1.0-2.3); Alkaline Phosphatase 36 U/L (39-117); Bilirubin,Direct < 0.2 mg/dL (0.0-0.3); Blood Urea Nitrogen 31 mg/dl (8-23); Gamma Glutamyl Transpeptidase 11 U/L (5-36); Magnesium 1.7 mg/dL (1.6-2.5); Phosphorous 2.2 mg/dL (2.7-4.5); Uric Acid 10.9 mg/dL (2.5-8.0)
--- NOTE | 2016-08-05 08:11 | General Surgery Progress Note ---
Surgical - Auxillary Note - Subjective Patient Information: Note initiated : 08/05/16 at 8:03 am Service Date, if different from initiated Date: [] Patient: Andi Diallo 75 y/o F admitted on 08/02/16 for Dehydration, Bowel Obstruction,Acute Kidney Injury. Chief Complaint: POD #2 Patient resting in bed. Pain control good with IV tylenol. Denies nausea. No flatus or BM as of yet. Vital Signs Temp Pulse Resp BP Pulse Ox 98.1 F 80 22 108/68 92 08/05/16 04:36 08/05/16 04:36 08/05/16 04:36 08/05/16 04:36 08/05/16 07:49 Period Temp Pulse Resp BP Sys/Lewis Pulse Ox Last 24 Hr 97.7 F-98.6 F 80-98 20-22 108-118/54-71 92-96 Intake and Output 08/04/16 08/05/16 08/05/16 21:59 05:59 13:59 Intake Total 100 / 100 929 / 929 Output Total 710 / 710 720 / 720 Balance -610 / -610 209 / 209 Weight 131 lb 8 oz PE: General appearance: no distress. alert and oriented. Chest: breath sounds clear bilaterally. No rales or wheezes. CV: regular rate and rhythm ABD: soft. non tender. Non distended. Wound intact without drainage or erythema. NGT in place with green bilious output. EXT: no edema, warm with distal pulses easily palpable. CBC and Chem 7 08/05/16 06:00 08/05/16 06:00 A/P: s/p adhesiolysis for bowel obstruction. Stable post op. CHADWICK: renal function improved and good urine output. OK from general surgery standpoint to remove howell. Await return of bowel function.
[2016-08-05] MEDS: PANTOPRAZOLE 40 MG VIAL IV SCH (08:18)
[2016-08-05] MEDS: HEPARIN 5,000 UNIT/ML VIAL SQ SCH ×2 (08:18→21:19)
--- NOTE | 2016-08-05 08:42 | Nephrology Progress Note ---
Subjective Patient information: Note initiated : 08/05/16 at 8:42 am Service Date, if different from initiated Date: [] Patient: Andi Diallo 75 y/o F admitted on 08/02/16 for Dehydration, Bowel Obstruction,Acute Kidney Injury. Chief Complaint: [] Principal diagnosis: SBO with CHADWICK Interval history: Pt is POD #2, doing well. Has NGT in with bilious fluid U/O has been good Objective - Vital Signs Vital signs: Vital Signs Temp Pulse Resp BP BP Pulse Ox 08/05/16 07:49 92 08/05/16 04:36 98.1 F 80 22 108/68 92 08/05/16 00:00 98.6 F 98 H 22 108/54 92 08/04/16 20:00 97.7 F 86 22 111/65 93 08/04/16 17:54 98.4 F 90 20 112/71 96 08/04/16 16:00 97.7 F 20 118/66 94 08/04/16 11:49 98.2 F 20 115/61 96 Intake and Output 08/04/16 08/05/16 08/05/16 21:59 05:59 13:59 Intake Total 100 / 100 929 / 929 Output Total 710 / 710 720 / 720 Balance -610 / -610 209 / 209 Intake: IV 100 / 100 929 / 929 Lactated Ringers 1,000 ml 929 / 929 @ 125 mls/hr IV .Q8H RUDDY Rx#:[id number] Oral 0 / 0 0 / 0 Output: Gastric Drainage 170 / 170 Left Nare NG/OG 10 / 10 170 / 170 Urine Catheter Amount 700 / 700 550 / 550 Other: # Bowel Movements 0 Weight 131 lb 8 oz Intake & Output: Intake & Output 08/04/16 08/05/16 08/05/16 21:59 05:59 13:59 Intake Total 100 / 100 929 / 929 Output Total 710 / 710 720 / 720 Balance -610 / -610 209 / 209 Weight 131 lb 8 oz Intake: IV 100 / 100 929 / 929 Lactated Ringers 1,000 ml 929 / 929 @ 125 mls/hr IV .Q8H RUDDY Rx#:[id number] Oral 0 / 0 0 / 0 Output: Gastric Drainage 10 10 170 / 170 Left Nare NG/OG 10 / 10 170 / 170 Urine Catheter Amount 700 / 700 550 / 550 Other: # Bowel Movements 0 - General Appearance General appearance: well-developed, well-nourished, appears started age EENT: mucous membranes moist (NGT in place) Neck: supple Respiratory: clear (no wheezing/crackles) Cardiology: no rub, no gallops, no edema, regular rate, regular rhythm, normal S1, normal S2 Gastrointestinal: absent bowel sounds, no tenderness (midline surgical scar, healing well), no guarding Integumentary: no rash, warm and dry Neurologic: no focal deficit, no asterixis, alert and oriented x3 Musculoskeletal: no deformities, no erythema Psychiatric: mood/affect appropriate - Lab 08/05/16 06:00 08/05/16 06:00 Most recent lab results Calcium 8.0 mg/dl (8.6-10.4) L 08/05/16 06:00 Phosphorus 2.2 mg/dL (2.7-4.5) L 08/05/16 06:00 Magnesium 1.7 mg/dL (1.6-2.5) 08/05/16 06:00 Assessment and Plan (1) Acute kidney injury Prerenal - secondary to vomiting and poor po intake Improved with fluid repletion from 5.5 -> 3.9 -> 1.7 ->1.3 -> 1.0 this AM has good urine output has low K and Low phos rec'd IV K phos yesterday, K 3.6 this AM and Phos 2.2 Was on LR, Na now 143 Will replete with 2 doses of K Phos 1/2 0.45% Sodium chloride thro' the day with f/u labs at 5 pm Status: Acute Priority: High Comment: improving (2) Dehydration uric acid now down to 10.9 with hydration monitor levels Status: Acute (3) Hyponatremia 2/2 N/V and poor po intake resolved, now mild hypernatremia Status: Acute (4) Bowel obstruction complete obstruction at the level of the pelvis s/p surgery, POD#2 doing well. Status: Acute Qualifiers: Intestinal obstruction type: obstruction due to adhesions Qualified Code(s) : K56.5 - Intestinal adhesions [bands] with obstruction (postprocedural) ( postinfection) (5) Hypokalemia K is now wnl monitor Status: Acute (6) Metabolic acidosis 2/2 CHADWICK + dilutional 2/2 administration of bicarb free fluid serum bicarb 22 with LR and 1/2 NS+ 75 mEq bicarb monitor levels Status: Acute (7) Hypocalcemia was related to CHADWICK and hyperphosphatemia, resolved now wnl Status: Acute (8) Hypophosphatemia 2/2 no po intake s/p surgery will replete prn Status: Acute
[2016-08-05] MEDS: DEXTROSE 5% IV SCH ×2 (09:27→14:53)
[2016-08-05] MEDS: POTASSIUM PHOSPHATE IV SCH ×2 (09:27→14:53)
[2016-08-05] MEDS: WATER IV SCH ×2 (09:27→14:53)
[2016-08-05] MEDS: DEXTROSE 5%-1/2NS 1,000 ML IV SCH ×3 (12:13→21:24)
--- NOTE | 2016-08-05 16:03 | Internal Med Progress Note ---
Medical - PN: Subj Patient information: Note initiated : 08/05/16 at 4:03 pm Service Date, if different from initiated Date: [] Patient: Andi Diallo a 75 y/o F admitted on 08/02/16 for Dehydration, Bowel Obstruction,Acute Kidney Injury. Chief Complaint: [] Interval history: 08/02: Ms. Diallo is a 75 year old female with h/o hysterectomy in the past, presents to the ER with complaints of nausea and vomiting going on since thursday (5 days) The patient symptoms started at night. She had 3-4 bouts of vomiting then and nausea, her symptoms somewhat got better, but she was not feeling well, she therefore presented to the ER on , Where she was evaluated, her creat was 2.2 then, she was given zofran and advised to follow up with PCP. The pt condition worsened again, with repeated bouts of vomiting, and nausea, no blood in vomitis, no aggravating or relieving factor, she notes to have poor appetitie. She presented to the ER again today. CXR abdomen shows that she has low level pelvic obstruction. She has REnal failure and severe dehydration. Medicine was asked to admit the patient , Surgery consulted from the ER.The patient is making very little urine, made a few ml in the ER for analysis and a little before she came in, She has not had any BM or Gas that she can remember, Last BM was 1 week ago. Given severe dehydration and Acute kidney injury with Creat 5.5, and BUN 104, the patient will be admitted to telemeter for further management. 08/03: Pt seen examined, doing well, no acute overnight events, She still has NG tube to wall suction, Guillory in place with good Urine output. She is on LR with 200cc / hr fluid, renal function better. K borderline, replace CT done this AM shows that the obstruction persisits, Plan to take her to the OR today. Advised to avoid hypotension during surgery, surgery at this time must be done to relieve obstruction. 08/04: Pt seen examined, doing well post op, no acute overnight events, renal function much better, good urine output, Post op day1 today, denies any passing of gas, no BM, but feels better. The patient still has NG tube to suction. Nephrology and surgery following. ok to xfer to med surg. 08/05- patient passing gas. No fever or chills. Minimal NG output. Surgery on board. Stable hemodynamics. No fever chills nausea vomiting. postoperative day 2. NG tube discontinued by surgery. Patient ambulating. - Constitutional Vitals: Vital Signs Temp Pulse Resp BP Pulse Ox 99.8 F H 82 20 130/79 92 08/05/16 15:29 08/05/16 15:29 08/05/16 15:29 08/05/16 15:29 08/05/16 15:29 Period Temp Pulse Resp BP Sys/Lewis Pulse Ox Last 24 Hr 97.7 F-99.8 F 78-98 - 108-130/54-79 92-96 Intake and Output 08/05/16 08/05/16 08/05/16 05:59 13:59 21:59 Intake Total 929 / 929 255 / 255 Output Total 720 / 720 640 / 640 Balance 209 / 209 255 / 255 -640 / -640 Intake & Output: Intake & Output 08/05/16 08/05/16 08/05/16 05:59 13:59 21:59 Intake Total 929 / 929 255 / 255 Output Total 720 / 720 640 / 640 Balance 209 / 209 255 / 255 -640 / -640 Intake: IV 929 / 929 255 / 255 Lactated Ringers 1,000 ml 929 / 929 @ 125 mls/hr IV .Q8H RUDDY Rx#:[id number] Dextrose 5% in Water 250 255 / 255 ml @ 127.273 mls/hr IV TODAY@0900,1300 RUDDY with Potassium Phosphate 22 Meq Rx#:[id number] Oral 0 / 0 Output: Gastric Drainage 170 / 170 Left Nare NG/OG 170 / 170 Urine Catheter Amount 550 / 550 640 / 640 General appearance: cooperative, no acute distress Exam: alert oriented nonlabored breathing nondistended abdomen Medical - PN: Obj Da - Labs CBC & Chem 7: 08/06/16 05:05 08/06/16 05:05 Labs: Abnormal Lab Results 08/05/16 08/05/16 08/04/16 06:00 06:00 16:10 RBC 3.30 L Hgb 9.9 L Hct 30.5 L Gran % Lymph % (Auto) [place] % (Auto) 10.0 H Lymph # [place] # Sodium Chloride Carbon Dioxide Anion Gap BUN 31 H 41 H Creatinine 1.3 H Glucose 64 L 62 L Uric Acid 10.9 H Calcium 8.0 L Phosphorus 2.2 L 2.2 L Alkaline Phosphatase 36 L Total Protein 4.4 L 5.4 L Albumin 2.4 L 2.9 L Globulin 2.0 L 08/04/16 08/04/16 08/03/16 03:55 03:55 Unknown RBC 3.52 L Hgb 10.6 L Hct 32.7 L Gran % 84.9 H Lymph % (Auto) 8.3 L [place] % (Auto) Lymph # 0.7 L [place] # Sodium Chloride 93 L Carbon Dioxide 21 L Anion Gap 20.0 H BUN 50 H 90 H Creatinine 1.7 H 3.9 H Glucose 59 L Uric Acid 10.6 H 13.4 H Calcium 8.5 L 7.0 L Phosphorus 5.2 H Alkaline Phosphatase 36 L Total Protein 4.5 L 5.2 L Albumin 2.4 L 2.8 L Globulin 2.1 L 08/03/16 08/03/16 08/02/16 Unknown 17:56 19:15 RBC 3.87 L Hgb Hct 35.9 L Gran % Lymph % (Auto) [place] % (Auto) 14.7 H Lymph # 1.3 L [place] # 1.0 H Sodium 132 L Chloride 86 L Carbon Dioxide 21 L Anion Gap 23.0 H BUN 60 H 105 H* Creatinine 2.2 H 5.1 H* Glucose 113 H Uric Acid Calcium 7.6 L Phosphorus 4.6 H Alkaline Phosphatase 38 L Total Protein 4.7 L Albumin 2.5 L 3.1 L Globulin Meds: Medications Acetaminophen (Tylenol) 650 mg PO Q6HP PRN PRN Reason: PAIN/FEVER > 101 Acetaminophen/Hydrocodone Bitart ([place] 5/325mg) 1 tab PO Q4HP PRN PRN Reason: Pain Heparin Sodium (Porcine) (Heparin) 5,000 unit SQ Q12 RUDDY Last Admin: 08/05/16 08:18 Dose: 5,000 unit Acetaminophen (Ofirmev) 1,000 mg in 100 mls @ 200 mls/hr IV Q12HP PRN PRN Reason: Pain Last Infusion: 08/04/16 15:37 Dose: Infused Dextrose/Sodium Chloride (Dextrose 5%-1/2ns Iv Solution) 1,000 mls @ 100 mls/ hr IV .Q10H RUDDY Stop: 08/06/16 07:00 Last Admin: 08/05/16 12:18 Dose: Not Given Naloxone HCl (Narcan) 0.1 mg IV Q2MIN PRN PRN Reason: Opiate Reversal Ondansetron HCl (Zofran) 4 mg IV Q4HP PRN PRN Reason: Nausea And Vomiting Pantoprazole Sodium (Protonix) 40 mg IV QAMAC [facility] Last Admin: 08/05/16 08:18 Dose: 40 mg Medical - PN: A/P - Time Spent With Patient Total time spent is greater than 50% in coordination of care (as documented) at patient's floor/unit and/or counseling patient: 25 - 35 minutes (1) Bowel obstruction Problem details: appears to be complete with no history of BM/flatus for 5 days and what is visible on CT Status: Acute Current Visit: Yes - Narrative A/P Narrative: * SBO: postop day 2. Doing well. NG discontinued. Managed by surgery * CHADWICK-nephrology on board-creatinine down at 1 plan * postop care as per surgery * renal failure management per nephrology * DVT prophylaxis on heparin Medical - PN: Qual - Stroke Symptom Onset Unknown: No - VTE Deep Vein Thrombosis/Pulmonary Embolism Present on Admission: No
--- NOTE | 2016-08-05 16:42 | Operative Note ---
DATE OF OPERATION: 08/03/2016 PREOPERATIVE DIAGNOSIS: Small bowel obstruction. POSTOPERATIVE DIAGNOSIS: Complete mechanical small bowel obstruction secondary to omental adhesions. OPERATION PERFORMED: Exploratory laparotomy and open adhesiolysis. SURGEON: Ehsan Hernandez MD. ANESTHESIA: Jhonathan Shi CRNA. INDICATION: Please see my hospital notes. FINDINGS: Stomach was normal. Gallbladder was surgically absent. Liver was normal. Spleen was normal. Stomach was palpably normal. Colon had a moderate amount of firm but not rock hard stool. There were no masses noted on careful palpation of the right, transverse, left and sigmoid colons. Uterus, tubes and ovaries were surgically absent. Appendix was normal and the cecum. There were two loops of small bowel looped behind an internal hernia created by the omental adhesions to the vaginal cuff with complete blockage there. The small bowel was run from the ligament of Treitz to the cecum twice. No other abnormalities were noted. There were some hyperemic changes at the point of obstruction but no bowel wall or lumen compromise. DESCRIPTION OF PROCEDURE: After informed consent and discussion of risks and benefits, the patient was taken to the operating room. A timeout was performed. Adequate general endotracheal anesthesia was obtained. Her airway was challenging, required a GlideScope, but it went smoothly. She already had a Chamberlain and NG tubes in place. She was given one gram of cefoxitin. In supine position her abdomen was prepped with Chlorohexidine and sterile drapes applied. A midline incision was made from just above the umbilicus, down to symphysis pubis and carried down through the midline to the fascia safely into the abdominal cavity. Bleeding points were controlled with electrocautery. A [place] retractor was placed. General exploration was carried out with the above noted findings. We placed her in Trendelenburg, eviscerated her, placed some packs and was able to lyse the adhesions to the vaginal cuff using scissors and/or electrocautery. There was just a little oozing at that point which I controlled lightly with the electrocautery. I then did a careful exam of the small bowel once again, irrigated down the pelvis once again with saline noting excellent hemostasis. I divided the two __ of bowel that were stuck and tied them off with 0 Vicryl to not allow another internal hernia. Bowels were returned to their normal location. Good counts obtained. Posterior rectus sheath and peritoneum were closed from below with continuous 0 Vicryl. Midline fascia was closed securely with double-stranded 0 PDS with small close bites in a 4:1 ratio. Subcutaneous was irrigated and closed with continuous 2-0 Vicryl and the skin with staple. She was then awakened, extubated and taken to PACU having tolerated the procedure well. Sponge, needle and instrument counts were correct. Estimated blood loss was 25 mL. WWW:[email or web address] Job ID: [id number] Doc ID: [id number] Ehsan Hernandez MD
[2016-08-05 18:15] LABS: Blood Urea Nitrogen 21 mg/dl (8-23)
[2016-08-05 18:16] LABS: ALT/SGPT 11 U/l (0-40); Albumin 2.6 gm/dL (3.2-5.2); Albumin/Globulin Ratio 1.1 (1.0-2.3); Alkaline Phosphatase 41 U/L (39-117); Magnesium 1.6 mg/dL (1.6-2.5); Phosphorous 4.2 mg/dL (2.7-4.5)
[2016-08-05] MEDS ORDERED: MAGNESIUM SULFATE 2 GM/50 ML BAG IV ONE (18:25)
[2016-08-06] MEDS: DEXTROSE 5%-1/2NS 1,000 ML IV SCH ×2 (01:51→06:02)
[2016-08-06 06:18] LABS: Basophils # (Auto) 0 K/mcL (0.0-0.3); Basophils % (Auto) 0.4 % (0.0-2.0); Eosinophils # (Auto) 0.1 K/mcL (0.0-0.7); Eosinophils % (Auto) 1.4 % (0.0-7.0); Granulocytes % (Auto) 69.6 % (38.0-78.0); Lymphocytes # (Auto) 1.6 K/mcL (1.5-4.8); Lymphocytes % (Auto) 19.2 % (15.5-49.0); Mean Cell Volume 92.4 fL (80.0-100.0); Mean Corpuscular HGB Conc 32.8 g/dL (31.0-36.0); Mean Corpuscular Hemoglobin 30.3 pg (26.0-34.0); Monocytes # (Auto) 0.8 K/mcL (0.1-0.9); Monocytes % (Auto) 9.4 % (1.0-9.0); Platelet Count 207 K/mcL (140-440); RBC 3.21 M/mcL (4.00-5.20); Red Cell Distribution Width 13.1 % (11.5-14.5)
[2016-08-06 06:49] LABS: ALT/SGPT 22 U/l (0-40); Albumin 2.5 gm/dL (3.2-5.2); Albumin/Globulin Ratio 1.6 (1.0-2.3); Alkaline Phosphatase 54 U/L (39-117); Bilirubin,Direct 0.2 mg/dL (0.0-0.3); Blood Urea Nitrogen 15 mg/dl (8-23); Gamma Glutamyl Transpeptidase 44 U/L (5-36); Magnesium 1.9 mg/dL (1.6-2.5); Phosphorous 2.7 mg/dL (2.7-4.5)
[2016-08-06] MEDS: PANTOPRAZOLE 40 MG VIAL IV SCH (07:05)
[2016-08-06] MEDS ORDERED: DEXTROSE 5%-NS 1,000 ML IV SCH (08:15)
--- NOTE | 2016-08-06 08:18 | Nephrology Progress Note ---
Subjective Patient information: Note initiated : 08/06/16 at 8:17 am Service Date, if different from initiated Date: [] Patient: Andi Diallo 75 y/o F admitted on 08/02/16 for Dehydration, Bowel Obstruction,Acute Kidney Injury. Chief Complaint: [] Principal diagnosis: SBO with CHADWICK Interval history: Pt doing well. NGt d/c. Passing flatus. Tolerating sips of liquids. Was ambulating with PT. Overall doing good. Appreciate Dr Scott's and Dr Nguyen's help in managing this patient Objective - Vital Signs Vital signs: Vital Signs Temp Pulse Resp BP Pulse Ox 08/06/16 08:05 97.4 F L 16 117/70 93 08/06/16 07:33 91 08/06/16 04:45 99.2 F 84 20 107/68 93 08/06/16 00:04 98.6 F 84 20 123/70 91 08/05/16 20:00 98.9 F 96 H 22 119/67 92 08/05/16 15:29 99.8 F H 82 20 130/79 92 08/05/16 11:34 97.9 F 78 22 118/77 94 Intake and Output 08/05/16 08/06/16 08/06/16 21:59 05:59 13:59 Intake Total 877 / 877 343 / 343 Output Total 790 / 790 750 / 750 250 / 250 Balance -407 / -407 -250 / -250 Intake: IV 757 / 757 293 / 293 Dextrose 5%-1/2Ns IV 707 / 707 293 / 293 Solution 1,000 ml @ 100 mls/hr IV .Q10H [facility] Rx#: [id number] Oral 120 / 120 50 / 50 Output: Gastric Drainage 150 / 150 Left Nare NG/OG 150 / 150 Urine Catheter Amount 640 / 640 750 / 750 250 / 250 Other: Weight 132 lb 8 oz Intake & Output: Intake & Output 08/05/16 08/06/16 08/06/16 21:59 05:59 13:59 Intake Total 877 / 877 343 / 343 Output Total 790 / 790 750 / 750 250 / 250 Balance 87 87 -407 / -407 -250 / -250 Weight 132 lb 8 oz Intake: IV 757 / 757 293 / 293 Dextrose 5%-1/2Ns IV 707 / 707 293 / 293 Solution 1,000 ml @ 100 mls/hr IV .Q10H [facility] Rx#: [id number] Oral 120 / 120 50 / 50 Output: Gastric Drainage 150 / 150 Left Nare NG/OG 150 / 150 Urine Catheter Amount 640 / 640 750 / 750 250 / 250 - General Appearance General appearance: well-developed, well-nourished, appears started age EENT: mucous membranes moist Neck: supple Respiratory: clear (no wheezing/crackles) Cardiology: no edema, regular rate, regular rhythm, normal S1, normal S2 Gastrointestinal: hypoactive bowel sounds (LLQ), no tenderness (surgical site mildly sore), no guarding Integumentary: no rash (midline surgical scar in abdomen, carisa in place, site C/D/I), warm and dry Neurologic: no focal deficit, no asterixis, alert and oriented x3 Musculoskeletal: no deformities, no erythema Psychiatric: mood/affect appropriate - Lab 08/06/16 05:05 08/06/16 05:05 Most recent lab results Calcium 7.5 mg/dl (8.6-10.4) L 08/06/16 05:05 Phosphorus 2.7 mg/dL (2.7-4.5) 08/06/16 05:05 Magnesium 1.9 mg/dL (1.6-2.5) 08/06/16 05:05 Assessment and Plan (1) Acute kidney injury Prerenal - secondary to vomiting and poor po intake Improved with fluid repletion from 5.5 -> 3.9 -> 1.7 ->1.3 -> 1.0 -> 0.8 this AM has good urine output rec'd 2X IV K phos yesterday, K 3.6 this AM and Phos 2.7 has low K and Low phos on AM labs, will replete x2 today D5 + 0.9% NaCl thro' the day with f/u labs at 5 pm Ok to d/c howell today Status: Acute Priority: High Comment: improving (2) Dehydration Appears volume replete uric acid now down to 8.0 with hydration monitor levels Status: Acute (3) Hyponatremia 2/2 N/V and poor po intake resolved, was mildly hypernatremic yesterday Na wnl this AM Status: Acute (4) Bowel obstruction complete obstruction at the level of the pelvis s/p surgery, POD#3 doing well. Passing flatus, NGT d/c tolerating sips Status: Acute Qualifiers: Intestinal obstruction type: obstruction due to adhesions Qualified Code(s) : K56.5 - Intestinal adhesions [bands] with obstruction (postprocedural) ( postinfection) (5) Hypokalemia K is 3.6 will replete monitor Status: Acute (6) Metabolic acidosis 2/2 CHADWICK + dilutional 2/2 administration of bicarb free fluid now resolved monitor levels Status: Acute (7) Hypocalcemia was related to CHADWICK and hyperphosphatemia, resolved Ca corrected for albumin is 8.7 - low normal will give Ca gluconate in pm based on labs Status: Acute (8) Hypophosphatemia 2/2 no po intake s/p surgery Phos 2.7 this AM Will replete Status: Acute
[2016-08-06] MEDS ORDERED: POTASSIUM PHOSPHATE 20 MEQ in DEXTROSE 5% IN WATER 250 ML IV ONE ×2 (08:30→12:00)
[2016-08-06] MEDS: DEXTROSE 5%-NS 1,000 ML IV SCH ×2 (08:35→17:30)
[2016-08-06] MEDS: HEPARIN 5,000 UNIT/ML VIAL SQ SCH ×2 (09:49→21:21)
--- NOTE | 2016-08-06 11:34 | General Surgery Progress Note ---
Surgical - Auxillary Note - Subjective Patient Information: Note initiated : 08/06/16 at 11:26 am Service Date, if different from initiated Date: [] Patient: Andi Diallo 75 y/o F admitted on 08/02/16 for Dehydration, Bowel Obstruction,Acute Kidney Injury. Chief Complaint: Patient sitting in chair at bedside taking in clear liquids. Not hungry but no nausea or emesis. Was up ambulating in halls earlier. Passing flatus. Pain control good. Vital Signs Temp Pulse Resp BP Pulse Ox 97.4 F L 84 16 117/70 93 08/06/16 08:05 08/06/16 04:45 08/06/16 08:05 08/06/16 08:05 08/06/16 08:05 Period Temp Pulse Resp BP Sys/Lewis Pulse Ox Last 24 Hr 97.4 F-99.8 F 78-96 - 107-130/67-79 91-94 Intake and Output 08/05/16 08/06/16 08/06/16 21:59 05:59 13:59 Intake Total 877 / 877 343 / 343 1288 / 1288 Output Total 790 / 790 750 / 750 250 / 250 Balance 87 / 87 -407 / -407 1038 / 1038 Weight 132 lb 8 oz PE: No distress. Alert and oriented Chest: clear bilaterally CV: regular rhythm ABD: soft and non tender. Incision clean dry and intact: no erythema or sign of infection. EXt: warm. no edema. CBC and Chem 7 08/06/16 05:05 08/06/16 05:05 A/P: Stable post op from adhesiolysis for SBO Some return of bowel function as evidenced by flatus: patient not very hungry right now. Will advance diet as tolerated. CHADWICK improved: nephrology following.
--- NOTE | 2016-08-06 12:07 | Internal Med Progress Note ---
Medical - PN: Subj Patient information: Note initiated : 08/06/16 at 12:05 pm Service Date, if different from initiated Date: [] Patient: Andi Diallo a 75 y/o F admitted on 08/02/16 for Dehydration, Bowel Obstruction,Acute Kidney Injury. Chief Complaint: [] Interval history: 08/02: Ms. Diallo is a 75 year old female with h/o hysterectomy in the past, presents to the ER with complaints of nausea and vomiting going on since thursday (5 days) The patient symptoms started at night. She had 3-4 bouts of vomiting then and nausea, her symptoms somewhat got better, but she was not feeling well, she therefore presented to the ER on , Where she was evaluated, her creat was 2.2 then, she was given zofran and advised to follow up with PCP. The pt condition worsened again, with repeated bouts of vomiting, and nausea, no blood in vomitis, no aggravating or relieving factor, she notes to have poor appetitie. She presented to the ER again today. CXR abdomen shows that she has low level pelvic obstruction. She has REnal failure and severe dehydration. Medicine was asked to admit the patient , Surgery consulted from the ER.The patient is making very little urine, made a few ml in the ER for analysis and a little before she came in, She has not had any BM or Gas that she can remember, Last BM was 1 week ago. Given severe dehydration and Acute kidney injury with Creat 5.5, and BUN 104, the patient will be admitted to telemeter for further management. 08/03: Pt seen examined, doing well, no acute overnight events, She still has NG tube to wall suction, Guillory in place with good Urine output. She is on LR with 200cc / hr fluid, renal function better. K borderline, replace CT done this AM shows that the obstruction persisits, Plan to take her to the OR today. Advised to avoid hypotension during surgery, surgery at this time must be done to relieve obstruction. 08/04: Pt seen examined, doing well post op, no acute overnight events, renal function much better, good urine output, Post op day1 today, denies any passing of gas, no BM, but feels better. The patient still has NG tube to suction. Nephrology and surgery following. ok to xfer to med surg. 08/05- patient passing gas. No fever or chills. Minimal NG output. Surgery on board. Stable hemodynamics. No fever chills nausea vomiting. postoperative day 2. NG tube discontinued by surgery. Patient ambulating. renal failure resolved.creatinine 1 08/06-bM today. No overnight fever chills abdominal pain nausea vomiting or postsurgical pain. No concerns except as per nursing staff. creatinine at 0.8. Managed by nephrology - Constitutional Vitals: Vital Signs Temp Pulse Resp BP Pulse Ox 97.4 F L 84 16 117/70 93 08/06/16 08:05 08/06/16 04:45 08/06/16 08:05 08/06/16 08:05 08/06/16 08:05 Period Temp Pulse Resp BP Sys/Lewis Pulse Ox Last 24 Hr 97.4 F-99.8 F 82-96 16-22 107-130/67-79 91-93 Intake and Output 08/05/16 08/06/16 08/06/16 21:59 05:59 13:59 Intake Total 877 / 877 343 / 343 1288 / 1288 Output Total 790 / 790 750 / 750 600 / 600 Balance 87 / 87 -407 / -407 688 / 688 Weight 132 lb 8 oz Intake & Output: Intake & Output 08/05/16 08/06/16 08/06/16 21:59 05:59 13:59 Intake Total 877 / 877 343 / 343 1288 / 1288 Output Total 790 / 790 750 / 750 600 / 600 Balance 87 / 87 -407 / -407 688 / 688 Weight 132 lb 8 oz Intake: IV 757 / 757 293 / 293 928 / 928 Dextrose 5%-1/2Ns IV 707 / 707 293 / 293 673 / 673 Solution 1,000 ml @ 100 mls/hr IV .Q10H [facility] Rx#: [id number] Oral 120 / 120 50 / 50 360 / 360 Output: Gastric Drainage 150 / 150 Left Nare NG/OG 150 / 150 Urine Catheter Amount 640 / 640 750 / 750 250 / 250 Void Amount 350 / 350 Other: Meal Breakfast Percent of Meal Consumed 25% Feeding Ability Independent # Bowel Movements 1 Medical - PN: Obj Da - Labs CBC & Chem 7: 08/06/16 05:05 08/06/16 05:05 Labs: Abnormal Lab Results 08/06/16 08/06/16 08/05/16 05:05 05:05 17:05 RBC 3.21 L Hgb 9.7 L Hct 29.6 L Gran % Lymph % (Auto) Rincon % (Auto) 9.4 H Lymph # Carbon Dioxide BUN Creatinine Glucose 133 H 106 H Uric Acid Calcium 7.5 L 8.2 L Phosphorus GGT 44 H Alkaline Phosphatase Total Protein 4.1 L 5.0 L Albumin 2.5 L 2.6 L Globulin 1.6 L 08/05/16 08/05/16 08/04/16 06:00 06:00 16:10 RBC 3.30 L Hgb 9.9 L Hct 30.5 L Gran % Lymph % (Auto) Rincon % (Auto) 10.0 H Lymph # Carbon Dioxide BUN 31 H 41 H Creatinine 1.3 H Glucose 64 L 62 L Uric Acid 10.9 H Calcium 8.0 L Phosphorus 2.2 L 2.2 L GGT Alkaline Phosphatase 36 L Total Protein 4.4 L 5.4 L Albumin 2.4 L 2.9 L Globulin 2.0 L 08/04/16 08/04/16 08/03/16 03:55 03:55 17:56 RBC 3.52 L Hgb 10.6 L Hct 32.7 L Gran % 84.9 H Lymph % (Auto) 8.3 L Rincon % (Auto) Lymph # 0.7 L Carbon Dioxide 21 L BUN 50 H 60 H Creatinine 1.7 H 2.2 H Glucose 113 H Uric Acid 10.6 H Calcium 8.5 L Phosphorus 4.6 H GGT Alkaline Phosphatase 36 L 38 L Total Protein 4.5 L 4.7 L Albumin 2.4 L 2.5 L Globulin 2.1 L Meds: Medications Acetaminophen (Tylenol) 650 mg PO Q6HP PRN PRN Reason: PAIN/FEVER > 101 Acetaminophen/Hydrocodone Bitart (Hoagland 5/325mg) 1 tab PO Q4HP PRN PRN Reason: Pain Heparin Sodium (Porcine) (Heparin) 5,000 unit SQ Q12 [facility] Last Admin: 08/06/16 09:49 Dose: 5,000 unit Acetaminophen (Ofirmev) 1,000 mg in 100 mls @ 200 mls/hr IV Q12HP PRN PRN Reason: Pain Last Infusion: 08/04/16 15:37 Dose: Infused Potassium Phosphate 20 meq/ (Dextrose) 254.5455 mls @ 127.273 mls/hr IV ONCE ONE Stop: 08/06/16 13:59 Dextrose/Sodium Chloride (Dextrose 5%-Ns Iv Solution) 1,000 mls @ 75 mls/hr IV .[id number] [facility] Last Admin: 08/06/16 08:35 Dose: Not Given Naloxone HCl (Narcan) 0.1 mg IV Q2MIN PRN PRN Reason: Opiate Reversal Ondansetron HCl (Zofran) 4 mg IV Q4HP PRN PRN Reason: Nausea And Vomiting Pantoprazole Sodium (Protonix) 40 mg IV QAMAC [facility] Last Admin: 08/06/16 07:05 Dose: 40 mg Medical - PN: A/P - Time Spent With Patient Total time spent is greater than 50% in coordination of care (as documented) at patient's floor/unit and/or counseling patient: 15 - 24 minutes (1) Bowel obstruction Problem details: appears to be complete with no history of BM/flatus for 5 days and what is visible on CT Status: Acute Current Visit: Yes - Narrative A/P Narrative: * SBO: postop day 3. Doing well. NG discontinued. Managed by surgery * CHADWICK-nephrology on board-creatinine down at 0.8 plan * postop care as per surgery * renal failure management per nephrology * DVT prophylaxis on heparin * discharge planning per surgery Medical - PN: Qual - Stroke Symptom Onset Unknown: No - VTE Deep Vein Thrombosis/Pulmonary Embolism Present on Admission: No
--- NOTE | 2016-08-06 16:50 | XRay Report ---
CLINICAL INFORMATION: Postsurgical follow-up. Bowel obstruction. TECHNIQUE: Supine and upright abdomen COMPARISON: Preoperative plain film examination dated 08/02/[address] scan dated 08/03/2016 FINDINGS: Bowel gas pattern is significantly improved. There is now gas within the colon. There is persistent small bowel gas with mild dilatation but this is improved. Findings may be related to mild ileus. No significant postoperative pneumoperitoneum. No biliary or portal venous gas. No pneumatosis. There are skin carisa in a vertical midline incision. IMPRESSION: 1. Improved bowel gas pattern. Gas and fecal material within the colon 2. No focal postoperative abnormality. Interpreted and Authenticated by: Liborio Alvarado 08/06/16
[2016-08-06 19:00] LABS: ALT/SGPT 122 U/l (0-40); Albumin 3.1 gm/dL (3.2-5.2); Albumin/Globulin Ratio 1.2 (1.0-2.3); Alkaline Phosphatase 107 U/L (39-117); Blood Urea Nitrogen 11 mg/dl (8-23); Magnesium 1.9 mg/dL (1.6-2.5); Phosphorous 3.7 mg/dL (2.7-4.5)
[2016-08-07] MEDS: DEXTROSE 5%-NS 1,000 ML IV SCH ×2 (00:34→05:48)
[2016-08-07 06:14] LABS: Basophils # (Auto) 0 K/mcL (0.0-0.3); Basophils % (Auto) 0.4 % (0.0-2.0); Eosinophils # (Auto) 0.2 K/mcL (0.0-0.7); Eosinophils % (Auto) 2.8 % (0.0-7.0); Granulocytes % (Auto) 53.7 % (38.0-78.0); Lymphocytes # (Auto) 1.7 K/mcL (1.5-4.8); Lymphocytes % (Auto) 29.6 % (15.5-49.0); Mean Cell Volume 92.3 fL (80.0-100.0); Mean Corpuscular HGB Conc 32.1 g/dL (31.0-36.0); Mean Corpuscular Hemoglobin 29.7 pg (26.0-34.0); Monocytes # (Auto) 0.8 K/mcL (0.1-0.9); Monocytes % (Auto) 13.5 % (1.0-9.0); Platelet Count 210 K/mcL (140-440); Red Cell Distribution Width 13.1 % (11.5-14.5)
[2016-08-07 06:55] LABS: ALT/SGPT 82 U/l (0-40); Albumin 2.1 gm/dL (3.2-5.2); Albumin/Globulin Ratio 0.9 (1.0-2.3); Alkaline Phosphatase 79 U/L (39-117); Bilirubin,Direct < 0.2 mg/dL (0.0-0.3); Blood Urea Nitrogen 9 mg/dl (8-23); Gamma Glutamyl Transpeptidase 67 U/L (5-36); Magnesium 1.6 mg/dL (1.6-2.5); Phosphorous 2.8 mg/dL (2.7-4.5); Uric Acid 5.5 mg/dL (2.5-8.0)
[2016-08-07] MEDS: PANTOPRAZOLE 40 MG VIAL IV SCH (07:19)
--- NOTE | 2016-08-07 08:28 | General Surgery Progress Note ---
Surgical - Auxillary Note - Subjective Patient Information: Note initiated : 08/07/16 at 8:11 am Service Date, if different from initiated Date: [] Patient: Andi Diallo 75 y/o F admitted on 08/02/16 for Dehydration, Bowel Obstruction,Acute Kidney Injury. Chief Complaint: POD#4 Patient resting in bed. Says she rested well overnight. Yesterday afternoon had two bowel movements and then an episode of emesis. Abd xrays suggested ileus but much improved from admit images with gas now throughout the colon. Has had no further episodes of nausea or emesis. No further stools but continues to pass flatus. Feels well and would like to try drinking liquids again. Vital Signs Temp Pulse Resp BP Pulse Ox 97.7 F 80 18 125/68 95 08/07/16 07:59 08/07/16 04:00 08/07/16 07:59 08/07/16 07:59 08/07/16 07:59 Period Temp Pulse Resp BP Sys/Lewis Pulse Ox Last 24 Hr 97.6 F-99.4 F 80-87 16-20 104-125/67-77 93-97 Intake and Output 08/06/16 08/07/16 08/07/16 21:59 05:59 13:59 Intake Total 923 / 923 Output Total 450 / 450 200 / 200 Balance -450 / -450 723 / 723 Weight 132 lb PE: Patient resting in bed in no distress Chest: Clear bilaterally CV: regular rate andrhythm ABD: soft and non tender. non distended. incision intact and without erythema or discharge. CBC and Chem 7 08/07/16 04:50 08/07/16 04:50 A/P: Stable overnight. Episode of emesis yesterday--isolated. feeling well now and passing flatus. will trial sips of clears as tolerated.
--- NOTE | 2016-08-07 08:40 | Nephrology Progress Note ---
Subjective Patient information: Note initiated : 08/07/16 at 8:38 am Service Date, if different from initiated Date: [] Patient: Andi Diallo 75 y/o F admitted on 08/02/16 for Dehydration, Bowel Obstruction,Acute Kidney Injury. Chief Complaint: [] Principal diagnosis: SBO with CHADWICK Interval history: Pt had 2 BMs yesterday and an episode of emesis. Xrays indicated ileus but improved. Pt feels well and has no complaints this AM. Also seen by Dr Booth. Pt is passing flatus. Will undergo a trial of sips today as tolerated Given ileus - electrolytes masoud K, Mg, Ca , Phos will be monitored and repleted Appreciate Dr Nguyen's and Dr Scott's help in managing this pt Pertinent ROS: doing well, abdomen less sore and less distended Additional PMFSH (Level 3 Only): hx of hysterectomy Objective - Vital Signs Vital signs: Vital Signs Temp Pulse Pulse Resp BP Pulse Ox 08/07/16 07:59 97.7 F 18 125/68 95 08/07/16 07:14 94 08/07/16 04:00 98.4 F 80 16 104/67 94 08/06/16 23:55 98.6 F 85 16 109/70 93 08/06/16 19:32 99.4 F 87 16 115/73 94 08/06/16 18:55 84 95 08/06/16 17:00 97.6 F 16 118/77 97 08/06/16 12:20 98.2 F 20 125/72 93 Intake and Output 08/06/16 08/07/16 08/07/16 21:59 05:59 13:59 Intake Total 923 / 923 Output Total 450 / 450 200 / 200 Balance -450 / -450 723 / 723 Intake: IV 923 / 923 Dextrose 5%-Ns IV 923 / 923 Solution 1,000 ml @ 75 mls/hr IV .[id number] [facility] Rx #:[id number] Oral 0 / 0 Output: Void Amount 200 / 200 200 / 200 Emesis 250 / 250 Other: # Voids 1 # Bowel Movements 2 # of times incontinent of 1 Bowels Weight 132 lb Intake & Output: Intake & Output 08/06/16 08/07/16 08/07/16 21:59 05:59 13:59 Intake Total 923 / 923 Output Total 450 / 450 200 / 200 Balance -450 / -450 723 / 723 Weight 132 lb Intake: IV / 3 Dextrose 5%-Ns IV / Solution 1,000 ml @ 75 mls/hr IV .[id number] [facility] Rx #:[id number] Oral 0 / 0 Output: Void Amount 200 / 200 200 / 200 Emesis 250 / 250 Other: # Voids 1 # Bowel Movements 2 # of times incontinent of 1 Bowels - General Appearance General appearance: well-developed, well-nourished, appears started age EENT: mucous membranes moist Neck: supple Respiratory: clear (no wheezing/crackles) Cardiology: regular rate, regular rhythm (S1, S2) Gastrointestinal: hypoactive bowel sounds (a little rumbling) Integumentary: no rash, warm and dry Neurologic: no focal deficit, no asterixis, alert and oriented x3 Musculoskeletal: no deformities, no erythema Psychiatric: mood/affect appropriate - Lab 08/07/16 04:50 08/07/16 04:50 Most recent lab results Calcium 7.4 mg/dl (8.6-10.4) L 08/07/16 04:50 Phosphorus 2.8 mg/dL (2.7-4.5) 08/07/16 04:50 Magnesium 1.6 mg/dL (1.6-2.5) 08/07/16 04:50 Assessment and Plan (1) Acute kidney injury Prerenal - secondary to vomiting and poor po intake Improved with fluid repletion from 5.5 -> 3.9 -> 1.7 ->1.3 -> 1.0 -> 0.8 Chamberlain has been d/c, able to pass urine Cr remains stable at 0.8 rec'd 2X IV K phos yesterday, K 4.1 this am and Phos 2.8, Mg 1.6, Na 143 and bicarb 22 Will change to 1/2 NS with D5 at 100 cc/hr 2g IV mg rider 20 mEq Kphos rider f/u labs at 4 pm Will need f/u appt with renal clinic post d/c with script for CMP, Mg, Phos Will sign off on patient; please call with Qs if any. Status: Resolved Comment: improving (2) Dehydration Appears volume replete uric acid now down to 5.0 with hydration monitor levels Status: Resolved (3) Hyponatremia 2/2 N/V and poor po intake resolved, now mildly hypernatremic will change to 1/2 NS with D5 Status: Resolved (4) Bowel obstruction complete obstruction at the level of the pelvis s/p surgery, POD#4 doing well. Passing flatus, NGT d/c had BM and emesis yesterday but feels better will be undergoing another trial of sips today Qualifiers: Intestinal obstruction type: obstruction due to adhesions Qualified Code(s) : K56.5 - Intestinal adhesions [bands] with obstruction (postprocedural) ( postinfection) (5) Hypokalemia K is wnl will be receiving K phos monitor labs Status: Acute (6) Metabolic acidosis 2/2 CHADWICK + dilutional 2/2 administration of bicarb free fluid bicarb down to 22 monitor levels Status: Acute (7) Hypocalcemia was related to CHADWICK and hyperphosphatemia, resolved Ca corrected for albumin is 8.92 - low normal monitor (8) Hypophosphatemia 2/2 no po intake s/p surgery Phos 2.8 this AM Will replete (9) Hypomagnesemia 2/2 no po intake will replete Status: Acute
[2016-08-07] MEDS ORDERED: POTASSIUM PHOSPHATE 20 MEQ in DEXTROSE 5% IN WATER 250 ML IV ONE (09:00)
[2016-08-07] MEDS ORDERED: MAGNESIUM SULFATE 2 GM/50 ML BAG IV ONE (09:00)
[2016-08-07] MEDS: DEXTROSE 5%-1/2NS 1,000 ML IV SCH ×2 (10:01→21:06)
--- NOTE | 2016-08-07 10:08 | Internal Med Progress Note ---
Medical - PN: Subj Patient information: Note initiated : 08/07/16 at 10:05 am Service Date, if different from initiated Date: [] Patient: Andi Diallo a 75 y/o F admitted on 08/02/16 for Dehydration, Bowel Obstruction,Acute Kidney Injury. Chief Complaint: [] Interval history: 08/02: Ms. Diallo is a 75 year old female with h/o hysterectomy in the past, presents to the ER with complaints of nausea and vomiting going on since thursday (5 days) The patient symptoms started at night. She had 3-4 bouts of vomiting then and nausea, her symptoms somewhat got better, but she was not feeling well, she therefore presented to the ER on , Where she was evaluated, her creat was 2.2 then, she was given zofran and advised to follow up with PCP. The pt condition worsened again, with repeated bouts of vomiting, and nausea, no blood in vomitis, no aggravating or relieving factor, she notes to have poor appetitie. She presented to the ER again today. CXR abdomen shows that she has low level pelvic obstruction. She has REnal failure and severe dehydration. Medicine was asked to admit the patient , Surgery consulted from the ER.The patient is making very little urine, made a few ml in the ER for analysis and a little before she came in, She has not had any BM or Gas that she can remember, Last BM was 1 week ago. Given severe dehydration and Acute kidney injury with Creat 5.5, and BUN 104, the patient will be admitted to telemeter for further management. 08/03: Pt seen examined, doing well, no acute overnight events, She still has NG tube to wall suction, Guillory in place with good Urine output. She is on LR with 200cc / hr fluid, renal function better. K borderline, replace CT done this AM shows that the obstruction persisits, Plan to take her to the OR today. Advised to avoid hypotension during surgery, surgery at this time must be done to relieve obstruction. 08/04: Pt seen examined, doing well post op, no acute overnight events, renal function much better, good urine output, Post op day1 today, denies any passing of gas, no BM, but feels better. The patient still has NG tube to suction. Nephrology and surgery following. ok to xfer to med surg. 08/05- patient passing gas. No fever or chills. Minimal NG output. Surgery on board. Stable hemodynamics. No fever chills nausea vomiting. postoperative day 2. NG tube discontinued by surgery. Patient ambulating. renal failure resolved.creatinine 1 08/06-bM today. No overnight fever chills abdominal pain nausea vomiting or postsurgical pain. No concerns except as per nursing staff. creatinine at 0.8. Managed by nephrology 08/07- Patient had major bilious emesis previous day. Made nothing by mouth secondary to persistent ileus and started on NG decompression. Patient had explosive bowel movements. ongoing management by surgery. No further recommendations by hospitalist service. - Constitutional Vitals: Vital Signs Temp Pulse Resp BP Pulse Ox 97.7 F 80 18 125/68 95 08/07/16 07:59 08/07/16 04:00 08/07/16 07:59 08/07/16 07:59 08/07/16 07:59 Period Temp Pulse Resp BP Sys/Lewis Pulse Ox Last 24 Hr 97.6 F-99.4 F 80-87 16-20 104-125/67-77 93-97 Intake and Output 08/06/16 08/07/16 08/07/16 21:59 05:59 13:59 Intake Total 923 / 923 400 / 400 Output Total 450 / 450 200 / 200 Balance -450 / -450 723 / 723 400 / 400 Weight 132 lb Intake & Output: Intake & Output 08/06/16 08/07/16 08/07/16 21:59 05:59 13:59 Intake Total 923 / 923 400 / 400 Output Total 450 / 450 200 / 200 Balance -450 / -450 723 / 723 400 / 400 Weight 132 lb Intake: IV 923 / 923 Dextrose 5%-Ns IV 923 / 923 Solution 1,000 ml @ 75 mls/hr IV .[id number] [facility] Rx #:[id number] Oral 0 / 0 400 / 400 Output: Void Amount 200 / 200 200 / 200 Emesis 250 / 250 Other: Meal Breakfast Percent of Meal Consumed 25% Feeding Ability Independent # Voids 1 # Bowel Movements 2 # of times incontinent of 1 Bowels General appearance: cooperative, no acute distress Exam: NG tube discontinued Nondistended abdomen nonlabored breathing Medical - PN: Obj Da - Labs CBC & Chem 7: 03/23/17 04:50 08/07/16 04:50 Labs: Abnormal Lab Results 08/07/16 08/07/16 08/06/16 04:50 04:50 17:04 RBC 3.20 L Hgb 9.5 L Hct 29.5 L Swift % (Auto) 13.5 H BUN Creatinine Glucose 112 H 117 H Uric Acid Calcium 7.4 L 8.1 L Phosphorus GGT 67 H AST 79 H 162 H ALT 82 H 122 H Alkaline Phosphatase Total Protein 4.4 L 5.7 L Albumin 2.1 L 3.1 L Globulin Albumin/Globulin Ratio 0.9 L 08/06/16 08/06/16 08/05/16 05:05 05:05 17:05 RBC 3.21 L Hgb 9.7 L Hct 29.6 L Swift % (Auto) 9.4 H BUN Creatinine Glucose 133 H 106 H Uric Acid Calcium 7.5 L 8.2 L Phosphorus GGT 44 H AST ALT Alkaline Phosphatase Total Protein 4.1 L 5.0 L Albumin 2.5 L 2.6 L Globulin 1.6 L Albumin/Globulin Ratio 08/05/16 08/05/16 08/04/16 06:00 06:00 16:10 RBC 3.30 L Hgb 9.9 L Hct 30.5 L Swift % (Auto) 10.0 H BUN 31 H 41 H Creatinine 1.3 H Glucose 64 L 62 L Uric Acid 10.9 H Calcium 8.0 L Phosphorus 2.2 L 2.2 L GGT AST ALT Alkaline Phosphatase 36 L Total Protein 4.4 L 5.4 L Albumin 2.4 L 2.9 L Globulin 2.0 L Albumin/Globulin Ratio Meds: Medications Acetaminophen (Tylenol) 650 mg PO Q6HP PRN PRN Reason: PAIN/FEVER > 101 Acetaminophen/Hydrocodone Bitart (Logan 5/325mg) 1 tab PO Q4HP PRN PRN Reason: Pain Heparin Sodium (Porcine) (Heparin) 5,000 unit SQ Q12 RUDDY Last Admin: 08/06/16 21:21 Dose: 5,000 unit Acetaminophen (Ofirmev) 1,000 mg in 100 mls @ 200 mls/hr IV Q12HP PRN PRN Reason: Pain Last Infusion: 08/04/16 15:37 Dose: Infused Dextrose/Sodium Chloride (Dextrose 5%-1/2ns Iv Solution) 1,000 mls @ 100 mls/ hr IV .Q10H RUDDY Potassium Phosphate 20 meq/ (Dextrose) 254.5455 mls @ 127.273 mls/hr IV ONCE ONE Stop: 08/07/16 10:59 Naloxone HCl (Narcan) 0.1 mg IV Q2MIN PRN PRN Reason: Opiate Reversal Ondansetron HCl (Zofran) 4 mg IV Q4HP PRN PRN Reason: Nausea And Vomiting Last Admin: 08/06/16 15:12 Dose: 4 mg Pantoprazole Sodium (Protonix) 40 mg IV QAMAC RUDDY Last Admin: 08/07/16 07:19 Dose: 40 mg Medical - PN: A/P - Time Spent With Patient Total time spent is greater than 50% in coordination of care (as documented) at patient's floor/unit and/or counseling patient: 15 - 24 minutes (1) Bowel obstruction Problem details: appears to be complete with no history of BM/flatus for 5 days and what is visible on CT Status: Acute Current Visit: Yes - Narrative A/P Narrative: * postoperative ileus- resolved. postop SBO day 4. NG discontinued after overnight placement. managed by surgery * [facility]-nephrology on board-creatinine down at 0.8. nephrology signing off. Recommends continuing potassium phosphate replacement as indicated plan * postop care as per surgery * nephrology recommends containing potassium and phosphate replacement as indicated and to monitor sodium levels * DVT prophylaxis on heparin Medical - PN: Qual - Stroke Symptom Onset Unknown: No - VTE Deep Vein Thrombosis/Pulmonary Embolism Present on Admission: No
[2016-08-07] MEDS: HEPARIN 5,000 UNIT/ML VIAL SQ SCH ×2 (11:13→21:05)
[2016-08-07 17:28] LABS: ALT/SGPT 94 U/l (0-40); Albumin 2.7 gm/dL (3.2-5.2); Albumin/Globulin Ratio 1.1 (1.0-2.3); Alkaline Phosphatase 97 U/L (39-117); Blood Urea Nitrogen 7 mg/dl (8-23); Magnesium 2.3 mg/dL (1.6-2.5); Phosphorous 3.2 mg/dL (2.7-4.5)
[2016-08-08] MEDS: DEXTROSE 5%-1/2NS 1,000 ML IV SCH ×2 (00:29→06:48)
--- NOTE | 2016-08-08 07:25 | General Surgery Progress Note ---
Surgical - Auxillary Note - Subjective Patient Information: Note initiated : 08/08/16 at 7:21 am Service Date, if different from initiated Date: [] Patient: Andi Diallo 75 y/o F admitted on 08/02/16 for Dehydration, Bowel Obstruction,Acute Kidney Injury. Chief Complaint: Patient sitting in bed. Passed liquid stool yesterday--nursing reports an explosive episode. Denies abdominal pain. Tolerated liquids. Vital Signs Temp Pulse Resp BP Pulse Ox 98.2 F 84 18 122/76 91 08/08/16 04:00 08/08/16 04:00 08/08/16 04:00 08/08/16 04:00 08/08/16 04:00 Period Temp Pulse Resp BP Sys/Lewis Pulse Ox Last 24 Hr 97.7 F-98.3 F 84-87 16-18 115-129/68-84 91-97 Intake and Output 08/07/16 08/08/16 08/08/16 21:59 05:59 13:59 Intake Total 1240 / 1240 0 / 0 Output Total 1450 / 1450 300 / 300 Balance -210 / -210 -300 / -300 Weight 131 lb 8 oz PE: Patient appears well and rested Abdomen soft and non tender. Incision c/d/i A/P: Patient feeling ok. Tolerating liquids. Has passed flatus and stool but stools have been liquid. Will check for C.diff. If otherwise ok can go home today.
[2016-08-08] MEDS: PANTOPRAZOLE 40 MG VIAL IV SCH (07:51)
[2016-08-08] MEDS: HEPARIN 5,000 UNIT/ML VIAL SQ SCH (09:36)
--- NOTE | 2016-08-08 11:10 | Internal Med Progress Note ---
Medical - PN: Subj Patient information: Note initiated : 08/08/16 at 11:08 am Service Date, if different from initiated Date: [] Patient: Andi Diallo a 75 y/o F admitted on 08/02/16 for Dehydration, Bowel Obstruction,Acute Kidney Injury. Chief Complaint: [] Interval history: 08/02: Ms. Diallo is a 75 year old female with h/o hysterectomy in the past, presents to the ER with complaints of nausea and vomiting going on since thursday (5 days) The patient symptoms started at night. She had 3-4 bouts of vomiting then and nausea, her symptoms somewhat got better, but she was not feeling well, she therefore presented to the ER on , Where she was evaluated, her creat was 2.2 then, she was given zofran and advised to follow up with PCP. The pt condition worsened again, with repeated bouts of vomiting, and nausea, no blood in vomitis, no aggravating or relieving factor, she notes to have poor appetitie. She presented to the ER again today. CXR abdomen shows that she has low level pelvic obstruction. She has REnal failure and severe dehydration. Medicine was asked to admit the patient , Surgery consulted from the ER.The patient is making very little urine, made a few ml in the ER for analysis and a little before she came in, She has not had any BM or Gas that she can remember, Last BM was 1 week ago. Given severe dehydration and Acute kidney injury with Creat 5.5, and BUN 104, the patient will be admitted to telemeter for further management. 08/03: Pt seen examined, doing well, no acute overnight events, She still has NG tube to wall suction, Guillory in place with good Urine output. She is on LR with 200cc / hr fluid, renal function better. K borderline, replace CT done this AM shows that the obstruction persisits, Plan to take her to the OR today. Advised to avoid hypotension during surgery, surgery at this time must be done to relieve obstruction. 08/04: Pt seen examined, doing well post op, no acute overnight events, renal function much better, good urine output, Post op day1 today, denies any passing of gas, no BM, but feels better. The patient still has NG tube to suction. Nephrology and surgery following. ok to xfer to med surg. 08/05- patient passing gas. No fever or chills. Minimal NG output. Surgery on board. Stable hemodynamics. No fever chills nausea vomiting. postoperative day 2. NG tube discontinued by surgery. Patient ambulating. renal failure resolved.creatinine 1 08/06-bM today. No overnight fever chills abdominal pain nausea vomiting or postsurgical pain. No concerns except as per nursing staff. creatinine at 0.8. Managed by nephrology 08/07- Patient had major bilious emesis previous day. Made nothing by mouth secondary to persistent ileus and started on NG decompression. Patient had explosive bowel movements. ongoing management by surgery. No further recommendations by hospitalist service. 08/08-no overnight events except for explosive diarrhea. C. difficile pending. No significant postop changes. Patient alert oriented. Family at bedside. and expressed nursing staff. Possible discharge today if negative C. difficile - Constitutional Vitals: Vital Signs Temp Pulse Resp BP Pulse Ox 98.2 F 84 18 120/68 97 08/08/16 04:00 08/08/16 04:00 08/08/16 08:41 08/08/16 08:41 08/08/16 08:41 Period Temp Pulse Resp BP Sys/Lewis Pulse Ox Last 24 Hr 97.8 F-98.3 F 84-87 16-18 115-129/68-84 91-97 Intake and Output 08/07/16 08/08/16 08/08/16 21:59 05:59 13:59 Intake Total 1240 / 1240 0 / 0 220 / 220 Output Total 1450 / 1450 300 / 300 Balance -210 / -210 -300 / -300 220 / 220 Weight 131 lb 8 oz Intake & Output: Intake & Output 08/07/16 08/08/16 08/08/16 21:59 05:59 13:59 Intake Total 1240 / 1240 0 / 0 220 / 220 Output Total 1450 / 1450 300 / 300 Balance -210 / -210 -300 / -300 220 / 220 Weight 131 lb 8 oz Intake: IV 1000 / 1000 Dextrose 5%-1/2Ns IV 1000 / 1000 Solution 1,000 ml @ 100 mls/hr IV .Q10H [facility] Rx#: [id number] Oral 240 / 240 0 / 0 220 / 220 Output: Void Amount 1000 / 1000 300 / 300 Urine/Stool Mix 450 / 450 Other: Meal Breakfast Percent of Meal Consumed npo 25% Feeding Ability Independent # Voids 5 1 # Bowel Movements 1 1 General appearance: cooperative, no acute distress Medical - PN: Obj Da - Labs CBC & Chem 7: 08/07/16 04:50 08/07/16 16:12 Labs: Abnormal Lab Results 08/07/16 08/07/16 08/07/16 16:12 04:50 04:50 RBC 3.20 L Hgb 9.5 L Hct 29.5 L Thomas % (Auto) 13.5 H BUN 7 L Glucose 130 H 112 H Calcium 7.8 L 7.4 L GGT 67 H AST 78 H 79 H ALT 94 H 82 H Total Protein 5.2 L 4.4 L Albumin 2.7 L 2.1 L Globulin Albumin/Globulin Ratio 0.9 L 08/06/16 08/06/16 08/06/16 17:04 05:05 05:05 RBC 3.21 L Hgb 9.7 L Hct 29.6 L Thomas % (Auto) 9.4 H BUN Glucose 117 H 133 H Calcium 8.1 L 7.5 L GGT 44 H AST 162 H ALT 122 H Total Protein 5.7 L 4.1 L Albumin 3.1 L 2.5 L Globulin 1.6 L Albumin/Globulin Ratio 08/05/16 17:05 RBC Hgb Hct Thomas % (Auto) BUN Glucose 106 H Calcium 8.2 L GGT AST ALT Total Protein 5.0 L Albumin 2.6 L Globulin Albumin/Globulin Ratio Meds: Medications Acetaminophen (Tylenol) 650 mg PO Q6HP PRN PRN Reason: PAIN/FEVER > 101 Acetaminophen/Hydrocodone Bitart (Pound 5/325mg) 1 tab PO Q4HP PRN PRN Reason: Pain Heparin Sodium (Porcine) (Heparin) 5,000 unit SQ Q12 RUDDY Last Admin: 08/08/16 09:36 Dose: 5,000 unit Acetaminophen (Ofirmev) 1,000 mg in 100 mls @ 200 mls/hr IV Q12HP PRN PRN Reason: Pain Last Infusion: 08/04/16 15:37 Dose: Infused Naloxone HCl (Narcan) 0.1 mg IV Q2MIN PRN PRN Reason: Opiate Reversal Ondansetron HCl (Zofran) 4 mg IV Q4HP PRN PRN Reason: Nausea And Vomiting Last Admin: 08/06/16 15:12 Dose: 4 mg Pantoprazole Sodium (Protonix) 40 mg IV QAMAC RUDDY Last Admin: 08/08/16 07:51 Dose: 40 mg Medical - PN: A/P - Time Spent With Patient Total time spent is greater than 50% in coordination of care (as documented) at patient's floor/unit and/or counseling patient: 15 - 24 minutes (1) Bowel obstruction Problem details: appears to be complete with no history of BM/flatus for 5 days and what is visible on CT Status: Acute Current Visit: Yes - Narrative A/P Narrative: * small bowel obstruction-postop day 5. Patient doing well. Possible discharge today * [facility]-nephrology on board-creatinine down at 0.8. nephrology signed off. * electrolyte abnormality-managed by nephrology. Normalized. sodium at 132 * Explosive diarrhea-await C. difficile plan * possible discharge per surgery * await C. difficile * DVT prophylaxis on heparin Medical - PN: Qual - Stroke Symptom Onset Unknown: No - VTE Deep Vein Thrombosis/Pulmonary Embolism Present on Admission: No
--- NOTE | 2016-08-08 12:02 | Discharge Summary ---
Providers - Providers Patient information: Note initiated : 08/08/16 at 11:58 am Service Date, if different from initiated Date: [] Patient: Andi Diallo 75 y/o F admitted on 08/02/16 for Dehydration, Bowel Obstruction,Acute Kidney Injury. Chief Complaint: [] Date of admission: 08/02/16 Discharge date: 08/08/16 Attending physician: Nelson Nguyen general surgery and nephrology Primary care physician: Yobani Sanchez Hospitalization Hospital course: To OR on 08/03/16 for adhesiolysis for bowel obstruction In PCU post op overnight. Transferred to floor on POD#1 Had gradual improvement of renal function and return of bowel function. Started on clear liquids and slowly advanced diet as tolerated. Discharge diagnosis: mechanical small bowel obstruction and acute kidney injury Exam Temp Pulse Resp BP Pulse Ox 98.2 F 84 18 120/68 97 08/08/16 04:00 08/08/16 04:00 08/08/16 08:41 08/08/16 08:41 08/08/16 08:41 Discharge Plan - Patient/Caregiver Discharge Instructions Activity: increase activity as tolerated Diet: Regular Diet Additional Instructions: keep incision clean and dry. May shower but no submerging in tub, pool, jacuzzi , river, or kwok for two weeks. No lifting greater than 10 pounds for 6 weeks. Other Amb Orders: Commode Discharge Order Location: Determined By Patient - Follow up Plan Follow up with: Jackie Davis MD [Physician] - Bryanna Booth MD [Physician] - 08/14/16 8:45 am Yobani Sanchez MD [Primary Care Provider] - (Dr. Sanchez's office will call you with a hospital follow up.) Disposition: Home, Self-Care Prognosis: Fair Rehab Potential: Good Pending Studies Resuscitation Status Full Code Diet Regular Diet Start ThuAug 08 Lunch Heparin Sodium (Porcine) (Heparin) 5,000 unit SQ Q12 RUDDY Last Admin: 08/08/16 09:36 Dose: 5,000 unit Admin: 08/07/16 21:05 Dose: 5,000 unit Admin: 08/07/16 11:13 Dose: 5,000 unit Admin: 08/06/16 21:21 Dose: 5,000 unit Admin: 08/06/16 09:49 Dose: 5,000 unit Admin: 08/05/16 21:19 Dose: 5,000 unit Admin: 08/05/16 08:18 Dose: 5,000 unit Admin: 08/04/16 21:59 Dose: 5,000 unit Acetaminophen (Ofirmev) 1,000 mg in 100 mls @ 200 mls/hr IV Q12HP PRN PRN Reason: Pain Last Infusion: 08/04/16 15:37 Dose: 0 mls/hr Admin: 08/04/16 15:06 Dose: 200 mls/hr Ondansetron HCl (Zofran) 4 mg IV Q4HP PRN PRN Reason: Nausea And Vomiting Last Admin: 08/06/16 15:12 Dose: 4 mg Pantoprazole Sodium (Protonix) 40 mg IV QAMAC RUDDY Last Admin: 08/08/16 07:51 Dose: 40 mg Admin: 08/07/16 07:19 Dose: 40 mg Admin: 08/06/16 07:05 Dose: 40 mg Admin: 08/05/16 08:18 Dose: 40 mg Shift Summary 08/08/16 04:26 Shift Summary by Uri Howell Patient had 1x BM mixed with urine early in the shift - no further BM's. Up to BSC (I) - voided 1 additional time. Started full liq diet late in the day shift - did not drink much this noc. She has rested well tonight - awake breifly for VS & assessment. VS - WNL. Midline ABD incision open to air with carisa in place - no redness or drainage. She has denied pain or nausea all noc. IV RT F/A infusing D5 1/2NS @ 100ml/hr. She is calm, pleasant, & cooperative - looking forward to possible D/C later today. Initialized on 08/08/16 04:26 - END OF NOTE
== END 2016-08-08 14:25 | disposition home or self-care (01) | DRG 336 ==
LOC: ED 12:28 → ICU 16:50 → MEDSUR 08-04 17:00
PROVIDERS: ADMIT Internal Medicine; ATTEND Internal Medicine